=== PATIENT | male | born 1965 | race Caucasian/White ===

== ENCOUNTER 2017-04-17 10:36 | Inpatient (IN) | payer OTHER ==
[2017-04-17] VITALS (7 sets, daily range): BP systolic 133–158; BP diastolic 70–89; PULSE 77–85; RESP 17–21; TEMP 97.8–98.5; O2SAT 2–100
[2017-04-17] MEDS ORDERED: HYDROmorphone HCL PF 2 MG/ML VIAL ONE (10:47)
[2017-04-17] MEDS ORDERED: ONDANSETRON HCL 4 MG/2 ML VIAL ONE (10:47)
[2017-04-17 11:03] LABS: AUTOMATED NEUTROPHIL # 6.3 TH/MM3 (1.8-7.7); BASOPHIL # 0.1 TH/MM3 (0-0.2); BASOPHIL % 0.5 % (0.0-2.0); EOSINOPHIL % 8.7 % (0.0-4.0); HEMATOCRIT 45.5 % (39.0-51.0); HEMO FLAGS DIFF FINAL; I-STAT POTASSIUM 3.8 MMOL/L (3.5-4.9); LYMPH % 29.5 % (9.0-44.0); LYMPHOCYTE # 3.5 TH/MM3 (1.0-4.8); MEAN CELL VOLUME 94.3 FL (80.0-100.0); MEAN CORPUSCULAR HEMOGLOBIN 31.6 PG (27.0-34.0); MEAN CORPUSCULAR HGB CONC 33.5 % (32.0-36.0); MONO % 7.3 % (0.0-8.0); PLATELET COUNT 238 TH/MM3 (150-450); RED BLOOD COUNT 4.82 MIL/MM3 (4.50-5.90); RED CELL DISTRIBUTION WIDTH 12.9 % (11.6-17.2); WHITE BLOOD COUNT 11.7 TH/MM3 (4.0-11.0)
--- NOTE | 2017-04-17 11:03 | RADRPT ---
EXAM DATE/TIME: 04/17/2017 10:30 [facility] COMPARISON: No previous studies available for comparison. INDICATIONS : Trauma Alert, Fall left wrist pain. MEDICAL HISTORY : Hypercholesterolemia. SURGICAL HISTORY : None. ENCOUNTER: Initial ACUITY: 1 day PAIN SCORE: Non-responsive. LOCATION: Left Wrist FINDINGS: Dorsally displaced comminuted fracture of the distal radius. The ulna is suboptimally visualized due to lack of true AP view although it appears grossly intact. Carpal bones appear grossly intact and in normal alignment on lateral view. Associated soft tissue swelling about the wrist. CONCLUSION: 1. Dorsally displaced comminuted distal radial fracture. Hugo Clay MD on April 17, 2017 at 10:57 Board Certified Radiologist. This report was verified electronically.
--- NOTE | 2017-04-17 11:06 | RADRPT ---
EXAM DATE/TIME: 04/17/2017 10:30 [facility] COMPARISON: No previous studies available for comparison. INDICATIONS : Trauma Alert, Fall left ankle pain. MEDICAL HISTORY : None. SURGICAL HISTORY : None. ENCOUNTER: Initial ACUITY: 1 day PAIN SCORE: Non-responsive. LOCATION: Left Ankle FINDINGS: Impaction-type comminuted fractures of the distal tibia and fibula. There is anterior angulation of t he tibial fracture without significant displacement. There is a posterior displacement of the distal fibular fragment. Talar dome appears intact. Joint spaces appear grossly maintained. Soft tissue swel ling about the ankle. CONCLUSION: 1. Impacted comminuted fractures of the distal tibia and fibula, as above. Hugo Clay MD on April 17, 2017 at 11:02 Board Certified Radiologist. This report was verified electronically.
--- NOTE | 2017-04-17 11:07 | RADRPT ---
EXAM DATE/TIME: 04/17/2017 10:30 [facility] COMPARISON: No previous studies available for comparison. INDICATIONS : Trauma Alert, fall. MEDICAL HISTORY : Hypercholesterolemia. SURGICAL HISTORY : None. ENCOUNTER: Initial ACUITY: 1 day PAIN SCORE: Non-responsive. LOCATION: Bilateral chest FINDINGS: Lungs are clear without significant pneumothorax, effusion, or left apical cap. Cardiomediastinal con tours are within normal limits given portable technique. Bony thorax is grossly intact. CONCLUSION: 1. Negative portable chest status post trauma. Hugo Clay MD on April 17, 2017 at 11:05 Board Certified Radiologist. This report was verified electronically.
[2017-04-17] MEDS ORDERED: IOHEXOL 350 MG/ML 10 ML VIAL (for RAD DIAG) IVCONTRAST ONE (11:08)
--- NOTE | 2017-04-17 11:08 | RADRPT ---
EXAM DATE/TIME: 04/17/2017 10:58 [facility] COMPARISON: No previous studies available for comparison. INDICATIONS : Trauma alert, fall. RADIATION DOSE: 53.27 CTDIvol (mGy) MEDICAL HISTORY : None SURGICAL HISTORY : None. ENCOUNTER: Initial ACUITY: 1 day PAIN SCALE: 2/10 LOCATION: cranial TECHNIQUE: Multiple contiguous axial images were obtained of the head. Using automated exposure control and adj ustment of the mA and/or kV according to patient size, radiation dose was kept as low as reasonably a chievable to obtain optimal diagnostic quality images. DICOM format image data is available electro nically for review and comparison. FINDINGS: CEREBRUM: The ventricles are normal for age. No evidence of midline shift, mass lesion, hemorrhage or acute in farction. No extra-axial fluid collections are seen. POSTERIOR FOSSA: The cerebellum and brainstem are intact. The 4th ventricle is midline. The cerebellopontine angle i s unremarkable. EXTRACRANIAL: The visualized portion of the orbits is intact. SKULL: The calvaria is intact. No evidence of skull fracture. CONCLUSION: Normal examination. Morales Chapman MD on April 17, 2017 at 11:06 Board Certified Radiologist. This report was verified electronically.
--- NOTE | 2017-04-17 11:11 | PD ---
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 Patient denies any loss of consciousness. He also complains of back pains. He is brought in as a trauma alert by EMS. He is awake and able to give us history. Modifying Factors: None Associated Signs & Symptoms: Fall from 10 foot ladder, left ankle and left wrist deformity, back pain, trauma alert Risk Factors: None PFSH Past Medical History Medical History: Denies Significant Hx Review of Systems Except as stated in HPI: all other systems reviewed are Neg Physical Exam Narrative GENERAL: Well-developed middle age male patient currently in moderate distress. Awake and oriented 3. In backboard and c-collar. SKIN: Focused skin assessment warm/dry. HEAD: Atraumatic. Normocephalic. EYES: Pupils equal and round. No scleral icterus. No injection or drainage. ENT: No nasal bleeding or discharge. Mucous membranes pink and moist. NECK: Trachea midline. No JVD. C-collar in place. CARDIOVASCULAR: Regular rate and rhythm. No murmur appreciated. CHEST: Nontender throughout without deformity or crepitance. No retractions or use of accessory muscles. RESPIRATORY: No accessory muscle use. Clear to auscultation. Breath sounds equal bilaterally. GASTROINTESTINAL: Abdomen soft, non-tender, nondistended. Hepatic and splenic margins not palpable. Pelvis: Stable and nontender to palpation. MUSCULOSKELETAL: No obvious deformities. No clubbing. No cyanosis. No edema. EXTREMITIES: No clubbing, cyanosis, or edema. There is notable left wrist deformity with pulses intact and neurovascularly intact. Tender to palpation. There is also a notable distal tib-fib deformity with tenderness. Neurovascularly intact. NEUROLOGICAL: Awake and alert. No obvious cranial nerve deficits. Motor grossly within normal limits. Normal speech. PSYCHIATRIC: Appropriate mood and affect; insight and judgment normal. Data Data Last Documented VS Vital Signs Date Time Temp Pulse Resp B/P (MAP) Pulse Ox O2 Delivery O2 Flow Rate FiO2 04/17/17 10:30 97 3.00 Orders Orders I-Stat Profile (04/17/17 10:37) I-Stat Creatinine (04/17/17 10:37) Complete Blood Count With Diff (04/17/17 10:37) Prothrombin Time / Inr (Pt) (04/17/17 10:37) Act Partial Throm Time (Ptt) (04/17/17 10:37) Type And Screen (04/17/17 10:37) Chest, Single Ap (04/17/17 10:37) Pelvis, Ap Only (Routine) (04/17/17 10:37) Ct Brain W/O Iv Contrast(Rout) (04/17/17 10:37) Ct Cerv Spine W/O Contrast (04/17/17 10:37) Ct Thor Spine W/O Contrast (04/17/17 10:37) Ct Lumb Spine W/O Contrast (04/17/17 10:37) Iv Access Insert/Monitor (04/17/17 10:37) Ecg Monitoring (04/17/17 10:37) Oximetry (04/17/17 10:37) Oxygen Administration (04/17/17 10:37) Wrist, Limited (Ap&Lat) (04/17/17 ) Ankle, Limited (Ap&Lat) (04/17/17 ) Hydromorphone Pf Inj (Dilaudid Pf Inj) (04/17/17 10:47) Ondansetron Inj (Zofran Inj) (04/17/17 10:47) Admit Order (Ed Use Only) (04/17/17 10:50) Ct Abd/Pel W Iv Contrast(Rout) (04/17/17 ) Ct Thorax/ Chest W Iv Contrast (04/17/17 ) Labs Laboratory Tests Test 04/17/17 10:40 White Blood Count 11.7 TH/MM3 Red Blood Count 4.82 MIL/MM3 Hemoglobin 15.2 GM/DL Hematocrit 45.5 % Mean Corpuscular Volume 94.3 FL Mean Corpuscular Hemoglobin 31.6 PG Mean Corpuscular Hemoglobin Concent 33.5 % Red Cell Distribution Width 12.9 % Platelet Count 238 TH/MM3 Mean Platelet Volume 7.3 FL Neutrophils (%) (Auto) 54.0 % Lymphocytes (%) (Auto) 29.5 % Monocytes (%) (Auto) 7.3 % Eosinophils (%) (Auto) 8.7 % Basophils (%) (Auto) 0.5 % Neutrophils # (Auto) 6.3 TH/MM3 Lymphocytes # (Auto) 3.5 TH/MM3 Monocytes # (Auto) 0.9 TH/MM3 Eosinophils # (Auto) 1.0 TH/MM3 Basophils # (Auto) 0.1 TH/MM3 CBC Comment DIFF FINAL Differential Comment MDM Medical Screen Exam Complete: Yes Emergency Medical Condition: Yes Medical Record Reviewed: Yes EKG Prior to Arrival: Yes Interpretation(s) Laboratory Tests Test 04/17/17 10:40 White Blood Count 11.7 TH/MM3 (4.0-11.0) Eosinophils (%) (Auto) 8.7 % (0.0-4.0) Eosinophils # (Auto) 1.0 TH/MM3 (0-0.4) Bedside Glucose 125 MG/DL (60-95) Differential Diagnosis Fall from 10 foot, left wrist and left ankle injury: Dislocations versus fracture versus intracranial injuries versus lumbar spine injuries Narrative Course Case was discussed with who sees the patient in the trauma room and accepts him for admission to his service. X-rays in the trauma room shows a left tib-fib and left distal radial ulnar fracture. CAT scans have been ordered and the case was taken over by trauma at this point. Trauma Alert - Level One Trauma Alert Level One: Full trauma team activate, Patient evaluated, Trauma surgeon summoned Time Surgeon Summoned: 10:20 Time Anesthesiologist Summoned: 10:22 Diagnosis Diagnosis: Primary Impression: Fall from ladder Additional Impressions: Wrist fracture, closed Fracture of distal end of tibia with fibula Admitting Physician Requests: Admit Alpa Dhillon MD Apr 17, 2017 11:11
[2017-04-17 11:12] LABS: APTT (PATIENT) 25.9 SEC (24.3-30.1); INTERNATIONAL NORMALIZED RATIO 0.9 RATIO; PROTHROMBIN TIME - PATIENT 10.4 SEC (9.8-11.6)
--- NOTE | 2017-04-17 11:12 | RADRPT ---
EXAM DATE/TIME: 04/17/2017 10:30 [facility] COMPARISON: No previous studies available for comparison. INDICATIONS : Trauma Alert, Fall. MEDICAL HISTORY : None. SURGICAL HISTORY : None. ENCOUNTER: Initial ACUITY: 1 day PAIN SCORE: Non-responsive. LOCATION: Bilateral chest FINDINGS: A single frontal view of the pelvis demonstrates no evidence of fracture. The bony pelvic ring is in tact. Bony mineralization is normal. The soft tissues are intact. CONCLUSION: 1. No acute fracture or dislocation. Hugo Clay MD on April 17, 2017 at 11:06 Board Certified Radiologist. This report was verified electronically.
[2017-04-17] MEDS ORDERED: PROMETHAZINE INJ 25 MG/ML VIAL IM ONE (11:15)
--- NOTE | 2017-04-17 11:27 | RADRPT ---
EXAM DATE/TIME: 04/17/2017 10:58 [facility] COMPARISON: No previous studies available for comparison. INDICATIONS : Trauma alert, fall IV CONTRAST: 70 cc Omnipaque 350 (iohexol) IV ; Cumulative dose for multiple exams. ORAL CONTRAST: No oral contrast ingested. RADIATION DOSE: 19.96 CTDIvol (mGy) ; Combined studies - Thorax/Abdomen/Pelvis MEDICAL HISTORY : None SURGICAL HISTORY : None. ENCOUNTER: Initial ACUITY: 1 day PAIN SCALE: 0/10 LOCATION: abdomen TECHNIQUE: Volumetric scanning of the abdomen and pelvis was performed. Using automated exposure control and ad justment of the mA and/or kV according to patient size, radiation dose was kept as low as reasonably achievable to obtain optimal diagnostic quality images. DICOM format image data is available electro nically for review and comparison. FINDINGS: LOWER LUNGS: The visualized lower lungs are clear. LIVER: The liver is enlarged. Homogeneous density without lesion. There is no dilation of the biliary tree. No calcified gallstones. SPLEEN: Normal size without lesion. PANCREAS: Within normal limits. KIDNEYS: Normal in size and shape. There is no mass, stone or hydronephrosis. ADRENAL GLANDS: Within normal limits. VASCULAR: There is no aortic aneurysm. BOWEL/MESENTERY: The stomach, small bowel, and colon demonstrate no acute abnormality. There is no free intraperitone al air or fluid. The appendix is normal. ABDOMINAL WALL: Within normal limits. RETROPERITONEUM: There is no lymphadenopathy. BLADDER: No wall thickening or mass. REPRODUCTIVE: Central calcification is noted within the prostate. INGUINAL: Small left inguinal hernia containing only fat is noted. No lymphadenopathy is noted. MUSCULOSKELETAL: Within normal limits for patient age. CONCLUSION: 1. No evidence of intra-abdominal trauma. 2. Hepatomegaly. 3. Left inguinal hernia containing only fat. Chip Rhoaeds MD on April 17, 2017 at 11:22 Board Certified Radiologist. This report was verified electronically.
--- NOTE | 2017-04-17 11:29 | RADRPT ---
EXAM DATE/TIME: 04/17/2017 10:58 [facility] COMPARISON: No previous studies available for comparison. INDICATIONS : Trauma alert, fall IV CONTRAST: 70 cc Omnipaque 350 (iohexol) IV ; Cumulative dose for multiple exams. RADIATION DOSE: 19.96 CTDIvol (mGy) ; Combined studies - Thorax/Abdomen/Pelvis MEDICAL HISTORY : None SURGICAL HISTORY : None. ENCOUNTER: Initial ACUITY: 1 day PAIN SCALE: 4/10 LOCATION: chest TECHNIQUE: Volumetric scanning of the chest was performed. Using automated exposure control and adjustment of t he mA and/or kV according to patient size, radiation dose was kept as low as reasonably achievable to obtain optimal diagnostic quality images. DICOM format image data is available electronically for review and comparison. Follow-up recommendations for detected pulmonary nodules are based at a minimum on nodule size and pa tient risk factors according to Fleischner Society Guidelines. FINDINGS: LUNGS: There is no consolidation or pneumothorax. No concerning pulmonary nodule is visualized. Minimal pos terior atelectatic changes are noted bilaterally. Tiny bulla is noted within the right lower lobe. PLEURA: There is no pleural thickening or pleural effusion. MEDIASTINUM: The heart and great vessels demonstrate no acute abnormality. There is no mediastinal or hilar lymph adenopathy. AXILLAE: Within normal limits. No lymphadenopathy. SKELETAL: Within normal limits for patient age. MISCELLANEOUS: The visualized upper abdominal organs demonstrate no acute abnormality. CONCLUSION: 1. No evidence of intrathoracic trauma. 2. Minimal posterior atelectatic changes bilaterally. 3. Tiny bulla within the right lower lobe. Chip Rhoades MD on April 17, 2017 at 11:26 Board Certified Radiologist. This report was verified electronically.
--- NOTE | 2017-04-17 11:35 | MH ---
cc: JENNY MAYS MD DATE OF ADMISSION 04/17/[address] Mays, trauma surgery ADMISSION DIAGNOSIS Closed fracture of distal tibia and fibula left and closed fracture of the left ray radius and ulna. HISTORY OF PRESENT DISEASE This 51-year-old male was working on a ladder when he fell off 10 feet sideways and landed on his left side. He comes as a priority one trauma alert complaining about the pain in the left ankle and left wrist and apparently a trauma alert was called due to the height of the fall. The patient did not lose consciousness and does not complain about any other problems. PAST MEDICAL HISTORY Apparently is negative. PAST SURGICAL HISTORY Negative MEDICATIONS None ALLERGIES No allergies. SOCIAL HISTORY Noncontributory PHYSICAL EXAM Physical examination reveals a 51-year-old male in moderate distress. HEAD, EYES, EARS, NOSE, AND THROAT: Normocephalic. No trauma to the head. Pupils equally reactive. Extraocular muscles intact. No hemotympanum. No Swartz sign. No raccoon's eyes. NECK: Supple, bilateral carotid pulses. No bruits. C-collar is repositioned. CHEST: Bilateral breath sounds. HEART: Regular rhythm. Hemodynamically the patient is stable. No signs of trauma to the chest. ABDOMEN: Soft. Active bowel sounds. No rebound or guarding. No masses. No signs of trauma to the abdomen. EXTREMITIES: The patient has bilateral femoral, popliteal, dorsalis pedis and posterior tibial pulses on palpation. Bilateral brachial and radial ulnar pulses by palpation. The patient has deformity and swelling of the left ankle and left wrist consistent with fracture of both. No puncture or open wound is noted. NEUROLOGIC EXAMINATION: The Alton coma scale is 15, full motoric and sensory preserved. The patient is log-rolled to back, no abnormalities are found. IMPRESSION This is a 51-year-old male with the above-noted injuries to be admitted to the Trauma Service for further workup and therapy. Critical care time 35 minutes. Jenny MENESES/DJL /11:17 AM /11:27 AM
--- NOTE | 2017-04-17 11:39 | RADRPT ---
EXAM DATE/TIME: 04/17/2017 10:58 [facility] COMPARISON: No previous studies available for comparison. INDICATIONS : Trauma alert, fall RADIATION DOSE: 21.63 CTDIvol (mGy) MEDICAL HISTORY : None SURGICAL HISTORY : None. ENCOUNTER: Initial ACUITY: 1 day PAIN SCALE: 0/10 LOCATION: Neck TECHNIQUE: Volumetric scanning of the cervical spine was performed. Multiplanar reconstructions in the sagittal, coronal and oblique axial planes were performed. Using automated exposure control and adjustment o f the mA and/or kV according to patient size, radiation dose was kept as low as reasonably achievable to obtain optimal diagnostic quality images. DICOM format image data is available electronically f or review and comparison. FINDINGS: There is straightening of the normal cervical lordosis. There is no acute fracture or prevertebral s oft tissue swelling. Cervical spondylosis is noted at C4-5 and C3-4 with mild bilateral foraminal na rrowing at these levels. Mild diffuse disc osteophyte complex is noted at C4-5. The bony relationsh ip and alignment between C1 and C2 is well maintained. CONCLUSION: 1. No acute fracture or prevertebral soft tissue swelling. 2. Mild bilateral foraminal narrowing at C4-5 and C3-4. 3. Mild cervical spondylosis at C4-5 and C3-4. Straightening of the normal cervical lordosis. Chip Rhoades MD on April 17, 2017 at 11:19 Board Certified Radiologist. This report was verified electronically.
[2017-04-17] MEDS ORDERED: Post-op Orders (for Pharmacy) MISC XX ONE (11:45)
[2017-04-17] MEDS ORDERED: NALOXONE HCL 0.4 MG/ML AMP IV PUSH PRN (11:45)
[2017-04-17] MEDS: SODIUM CHLOR 0.9% 1000 ML INJ 1,000 ML IV SCH ×2 (13:16→20:53)
[2017-04-17] MEDS: PANTOPRAZOLE SOD 40 MG DELAYED RELEASE TAB PO SCH (13:16)
[2017-04-17] MEDS: oxyCODONE/ACETAMINOPHEN 5 MG/325 MG TAB PO PRN (13:22)
[2017-04-17] MEDS: ONDANSETRON HCL 4 MG/2 ML VIAL IV PRN (17:00)
[2017-04-17] MEDS: HYDROmorphone HCL PF 1 MG/ML VIAL IV PUSH PRN ×2 (17:02→20:35)
[2017-04-17] MEDS ORDERED: ENOXAPARIN SODIUM 40 MG/0.4 ML SYRINGE SQ SCH (18:00)
[2017-04-17] MEDS: MAGNESIUM HYDROXIDE SUSP 30 ML CUP PO SCH (20:37)
[2017-04-17] MEDS: SODIUM CHLORIDE 0.9% FLUSH 10 ML FLUSH IV FLUSH SCH (20:37)
[2017-04-17] MEDS: DOCUSATE SODIUM 50 MG/SENNA 8.6 MG TAB PO SCH (20:37)
[2017-04-18 00:12] VITALS: BP 137/78; PULSE 78; RESP 18; TEMP 98.2; O2SAT 97
[2017-04-18] MEDS: HYDROmorphone HCL PF 1 MG/ML VIAL IV PUSH PRN ×3 (03:15→16:17)
[2017-04-18 04:40] VITALS: BP 145/88; PULSE 79; RESP 18; TEMP 98.9; O2SAT 99
[2017-04-18] MEDS: oxyCODONE/ACETAMINOPHEN 5 MG/325 MG TAB PO PRN (05:37)
--- NOTE | 2017-04-18 07:07 | PD.ORT.PN ---
Subjective Subjective Remarks Fall from ladder with pain and deformity of left wrist and left distal tibia. No other associated complaints. Fractures are confirmed by x-ray and are splinted Objective Vitals Vital Signs Date Time Temp Pulse Resp B/P (MAP) Pulse Ox O2 Delivery O2 Flow Rate FiO2 04/18/17 04:40 98.9 79 18 145/88 (107) 99 04/18/17 00:12 98.2 78 18 137/78 (97) 97 04/17/17 20:46 97.8 77 18 133/77 (95) 97 04/17/17 14:37 04/17/17 14:30 98.5 85 17 153/89 (110) 98 04/17/17 13:00 80 21 158/77 (104) 96 2.00 04/17/17 12:01 100 Nasal Cannula 2.00 04/17/17 11:37 83 21 148/70 (96) 96 Nasal Cannula 2.00 04/17/17 11:27 20 91 Room Air 04/17/17 11:27 93 04/17/17 10:30 97 3.00 I/O 04/17/17 04/17/17 04/17/17 04/18/17 04/18/17 04/18/17 07:00 15:00 23:00 07:00 15:00 23:00 Intake Total 530 ml 285 ml Output Total 250 ml 600 ml Balance 280 ml -315 ml Intake Oral 480 ml 0 ml IV Total 50 ml 285 ml Output Urine Total 250 ml 600 ml # Bowel Movements 0 0 Result Diagram: 04/17/17 1040 Other Results Laboratory Tests Test 04/17/17 10:40 Prothromb Time International Ratio 0.9 RATIO Prothrombin Time 10.4 SEC (9.8-11.6) Imaging Last 24 hours Impressions Pelvis X-Ray 04/17/17 1037 Signed Impressions: Service Date/Time: April 10:30 - CONCLUSION: 1. No acute fracture or dislocation. Hugo Clay MD Head CT 04/17/17 1037 Signed Impressions: Service Date/Time: April 10:58 - CONCLUSION: Normal examination. Morales Chapman MD Chest X-Ray 04/17/17 1037 Signed Impressions: Service Date/Time: April 10:30 - CONCLUSION: 1. Negative portable chest status post trauma. Hugo Clay MD Cervical Spine CT 04/17/17 1037 Signed Impressions: Service Date/Time: April 10:58 - CONCLUSION: 1. No acute fracture or prevertebral soft tissue swelling. 2. Mild bilateral foraminal narrowing at C4-5 and C3-4. 3. Mild cervical spondylosis at C4-5 and C3-4. Straightening of the normal cervical lordosis. Chip Rhoades MD Objective Remarks Left upper extremity: No pain with shoulder range of motion. Sugar tong splint in place. Intact sensation in all his fingers is able fully extend and flex all his fingers. He has good capillary refills Left lower extremity: No pain with hip range of motion. Long-leg splint in place. Intact sensation distally in all toes. Good capillary refills. Assessment & Plan Assessment and Plan Left distal radius and left distal tibia/fibula fracture Surgery this morning for ORIF versus external fixation of left wrist and left distal tibia and fibula. Sign consents Nothing by mouth Luis Jacobson Jr. Apr 18, 2017 07:07
[2017-04-18 07:58] LABS: AUTOMATED NEUTROPHIL # 6.8 TH/MM3 (1.8-7.7); BASOPHIL % 0.3 % (0.0-2.0); EOSINOPHIL # 0.3 TH/MM3 (0-0.4); EOSINOPHIL % 2.9 % (0.0-4.0); HEMATOCRIT 43.7 % (39.0-51.0); HEMO FLAGS DIFF FINAL; LYMPH % 15.1 % (9.0-44.0); LYMPHOCYTE # 1.4 TH/MM3 (1.0-4.8); MEAN CELL VOLUME 94.1 FL (80.0-100.0); MEAN CORPUSCULAR HEMOGLOBIN 32.1 PG (27.0-34.0); MEAN CORPUSCULAR HGB CONC 34.1 % (32.0-36.0); MONO % 8.3 % (0.0-8.0); NEUT % 73.4 % (16.0-70.0); PLATELET COUNT 184 TH/MM3 (150-450); RED BLOOD COUNT 4.65 MIL/MM3 (4.50-5.90); RED CELL DISTRIBUTION WIDTH 12.7 % (11.6-17.2); WHITE BLOOD COUNT 9.3 TH/MM3 (4.0-11.0)
[2017-04-18 08:00] VITALS: BP 133/80; PULSE 82; RESP 18; TEMP 99; O2SAT 93
[2017-04-18 08:17] LABS: BICARBONATE 26.3 MEQ/L (21.0-32.0); POTASSIUM 3.9 MEQ/L (3.5-5.1)
[2017-04-18] MEDS: DOCUSATE SODIUM 50 MG/SENNA 8.6 MG TAB PO SCH ×2 (09:00→21:57)
--- NOTE | 2017-04-18 09:08 | HHI.PR ---
Subjective Subjective Notes PTD: 1 9020: IN OR 1010: In OR 1110: In OR Objective Vitals/I&O Vital Signs Date Time Temp Pulse Resp B/P (MAP) Pulse Ox O2 Delivery O2 Flow Rate FiO2 04/18/17 04:40 98.9 79 18 145/88 (107) 99 04/17/17 13:00 2.00 04/17/17 12:01 Nasal Cannula Labs Laboratory Tests Test 04/17/17 10:40 04/18/17 07:16 White Blood Count 11.7 9.3 Red Blood Count 4.82 4.65 Hemoglobin 15.2 14.9 Bedside Hemoglobin 15.3 Hematocrit 45.5 43.7 Bedside Hematocrit 45.0 Mean Corpuscular Volume 94.3 94.1 Mean Corpuscular Hemoglobin 31.6 32.1 Mean Corpuscular Hemoglobin Concent 33.5 34.1 Red Cell Distribution Width 12.9 12.7 Platelet Count 238 184 Mean Platelet Volume 7.3 7.5 Neutrophils (%) (Auto) 54.0 73.4 Lymphocytes (%) (Auto) 29.5 15.1 Monocytes (%) (Auto) 7.3 8.3 Eosinophils (%) (Auto) 8.7 2.9 Basophils (%) (Auto) 0.5 0.3 Neutrophils # (Auto) 6.3 6.8 Lymphocytes # (Auto) 3.5 1.4 Monocytes # (Auto) 0.9 0.8 Eosinophils # (Auto) 1.0 0.3 Basophils # (Auto) 0.1 0.0 CBC Comment DIFF FINAL DIFF FINAL Differential Comment Prothrombin Time 10.4 Prothromb Time International Ratio 0.9 Activated Partial Thromboplast Time 25.9 Bedside Sodium 141 Bedside Potassium 3.8 Bedside Chloride 104 Bedside Blood Urea Nitrogen 19 Bedside Creatinine 0.8 Bedside Glucose 125 Blood Urea Nitrogen 13 Creatinine 0.82 Random Glucose 105 Calcium Level 8.4 Sodium Level 134 Potassium Level 3.9 Chloride Level 100 Carbon Dioxide Level 26.3 Anion Gap 8 Estimat Glomerular Filtration Rate 99 Radiology Last Impressions Pelvis X-Ray 04/17/17 1037 Signed Impressions: Service Date/Time: April 10:30 - CONCLUSION: 1. No acute fracture or dislocation. Hugo Clay MD Head CT 04/17/17 1037 Signed Impressions: Service Date/Time: April 10:58 - CONCLUSION: Normal examination. Morales Chapman MD Chest X-Ray 04/17/17 1037 Signed Impressions: Service Date/Time: April 10:30 - CONCLUSION: 1. Negative portable chest status post trauma. Hugo Clay MD Cervical Spine CT 04/17/17 1037 Signed Impressions: Service Date/Time: April 10:58 - CONCLUSION: 1. No acute fracture or prevertebral soft tissue swelling. 2. Mild bilateral foraminal narrowing at C4-5 and C3-4. 3. Mild cervical spondylosis at C4-5 and C3-4. Straightening of the normal cervical lordosis. Chip Rhoades MD Wrist X-Ray 04/17/17 0000 Signed Impressions: Service Date/Time: April 10:30 - CONCLUSION: 1. Dorsally displaced comminuted distal radial fracture. Hugo Clay MD Chest CT 04/17/17 0000 Signed Impressions: Service Date/Time: April 10:58 - CONCLUSION: 1. No evidence of intrathoracic trauma. 2. Minimal posterior atelectatic changes bilaterally. 3. Tiny bulla within the right lower lobe. Chip Rhoades MD Ankle X-Ray 04/17/17 0000 Signed Impressions: Service Date/Time: April 10:30 - CONCLUSION: 1. Impacted comminuted fractures of the distal tibia and fibula, as above. Hugo Clay MD Abdomen/Pelvis CT 04/17/17 0000 Signed Impressions: Service Date/Time: April 10:58 - CONCLUSION: 1. No evidence of intra-abdominal trauma. 2. Hepatomegaly. 3. Left inguinal hernia containing only fat. Chip Rhoades MD A/P Problem List: (1) Fall from ladder ICD Codes: W11.XXXA - Fall on and from ladder, initial encounter Status: Acute (2) Wrist fracture, closed ICD Codes: S62.109A - Fracture of unspecified carpal bone, unspecified wrist, initial encounter for closed fracture Status: Acute (3) Fracture of distal end of tibia with fibula ICD Codes: S82.309A - Unspecified fracture of lower end of unspecified tibia, initial encounter for closed fracture; S82.839A - Other fracture of upper and lower end of unspecified fibula, initial encounter for closed fracture Status: Acute Assessment and Plan MESA GRANDE: 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 No LOC. GCS 15. INJURIES: C3-C4 and C4-C5 bilateral foraminal narrowing LEFT distal radius/ulna fracture LEFT tib-fib fracture Procedures: 04/18: ORIF vs ex-fix LEFT wrist and LEFT tib/fib. Consults: Orthopedics. Case management. Diet: Regular diet. Tolerating po diet. Encourage good po intake with each meal. Pulmonary: Encourage good pulmonary toileting. IS at bedside and pt encouraged to use. Rationale for use explained to patient, and verbalized understanding. PAIN Management: Percocet 5 mg every 4 hours. Dilaudid 1 mg every 3 hours for breakthrough pain Activity: BR. PT and OT ordered. GI prophylaxis: Protonix po. Bowel regimen: Brianna-colace and MOM. LBM: 0 DVT prophylaxis: Mechanical VTE with SCDs. Chemical management with Lovenox 40 QD SQ. DC Planning: Case management consulted for assistance with final discharge disposition. Emotional support provided to patient and family at bedside and plan of care discussed. Discussed with RN at bedside. Patient is hemodynamically stable and being managed on the med/surg floor. The trauma team will round each day, and evaluate plan of care on a daily basis. C3-C4 and C4-C5 bilateral foraminal narrowing LEFT distal radius/ulna fracture LEFT tib-fib fracture Orthopedics consulted and assisting in management and care 04/18: ORIF versus ex-fix Bedrest PT and OT ordered Tolerating weightbearing status from orthopedics Pain management DVT prophylaxis Attending Statement The exam, history, and the medical decision-making described in the above note were completed with the assistance of the mid-level provider. I reviewed and agree with the findings presented. I attest that I had a [id number] encounter with the patient on the same day, and personally performed and documented my assessment and findings in the medical record. discussed with family injuries/rehab plan neuro exam: awake/alert, GCS 15 Problem Qualifiers (1) Fall from ladder: Qualified Codes: W11.XXXA - Fall on and from ladder, initial encounter (2) Wrist fracture, closed: Qualified Codes: S62.102A - Fracture of unspecified carpal bone, left wrist, initial encounter for closed fracture (3) Fracture of distal end of tibia with fibula: Qualified Codes: S82.302A - Unspecified fracture of lower end of left tibia, initial encounter for closed fracture; S82.832A - Other fracture of upper and lower end of left fibula, initial encounter for closed fracture Samantha Bustillos Apr 18, 2017 09:08 Berto Moore MD May 06, 2017 23:47
[2017-04-18] MEDS ORDERED: ONDANSETRON HCL 4 MG/2 ML VIAL IV PUSH ONE (09:22)
[2017-04-18] MEDS ORDERED: NEOSTIGMINE METHYLSULFATE 10 MG/10 ML VIAL IV PUSH ONE (09:22)
[2017-04-18] MEDS ORDERED: GLYCOPYRROLATE 0.4 MG/2 ML VIAL IV ONE (09:22)
[2017-04-18] MEDS ORDERED: ePHEDrine/NS 25 MG/5 ML SYR IV ONE (09:22)
[2017-04-18] MEDS ORDERED: PROPOFOL 200 MG/20 ML AMP IV ONE (09:22)
[2017-04-18] MEDS ORDERED: ACETAMINOPHEN 1000 MG/100 ML VIAL IV ONE (09:25)
[2017-04-18] MEDS ORDERED: ROCURONIUM INJ 50 MG/5 ML SYRINGE IV PUSH ONE (09:25)
[2017-04-18] MEDS ORDERED: FAMOTIDINE 20 MG/2 ML VIAL IV ONE (09:25)
[2017-04-18] MEDS ORDERED: LACTATED RINGER'S 1000 ML INJ 1,000 ML IV ONE (09:25)
[2017-04-18] MEDS ORDERED: LIDOCAINE HCL 1% PF 5 ML AMPULE OTHER ONE (09:25)
[2017-04-18] MEDS ORDERED: GLYCOPYRROLATE 0.2 MG/ML VIAL IV ONE (09:25)
[2017-04-18] MEDS ORDERED: DEXAMETHASONE SOD PHOS 4 MG/ML VIAL IV ONE (09:25)
[2017-04-18] MEDS ORDERED: ceFAZolin 2 GM PREMIX 50 ML ONE (10:07)
[2017-04-18] MEDS ORDERED: VANCOMYCIN HCL 1000 MG VIAL ONE (10:07)
[2017-04-18] MEDS ORDERED: GENTAMICIN SULFATE 80 MG/2 ML VIAL ONE (10:07)
[2017-04-18] MEDS ORDERED: SODIUM CHLOR 0.9% 250 ML INJ 250 ML ONE (10:08)
--- NOTE | 2017-04-18 12:28 | PD.OP ---
cc: Boyd Brandon MD Operative Report Date of Surgery: Apr 18, 2017 Preoperative Diagnosis: Comminuted displaced left distal radius intra-articular fracture, displaced left distal tibia and fibula fractures Postoperative Diagnosis: Procedure: External fixation left wrist, Open reduction and fixation left distal radius closed reduction left distal tibia and fibula fractures, external fixation left ankle Surgeon: Boyd Brandon Human Services Case Manager(s): KHALIF aWllace PA-C The surgical procedure was assisted by my physician administrative personal assistant. My P.A. presence was necessary throughout this case for the manipulation and positioning of the surgical extremity. My P.A. was assisting me throughout the duration of this procedure. The skill set of a physician administrative personal assistant was medically necessary to complete this procedure. During the surgical case the rn surgical pcu was working at the back table and the physician administrative personal assistant was directly assisting me. Operation and Findings: Patient was seen and evaluated preoperatively and found to have a displaced left distal radius fracture and left distal tibia and fibula fractures. Informed consent was obtained after detailed discussion of risk and benefits including bleeding, infection, injury to arteries, nerves, and blood vessels, weakness and numbness of hand, and tendon rupture. Informed consent was obtained. Patient received IV antibiotics prior to incision. Timeout procedure was performed. Operative extremity was prepped with alcohol followed by Hibiclens and draped usual sterile fashion. A standard volar approach to the distal radius was utilized. A 3 inch incision was made over the FCR tendon. Tendon sheath was opened. Pronator quadratus was elevated up. The fracture site was now visualized. The fracture did have intra-articular extension. There was severe comminution of the articular surface with significant displacement. Because of the comminution of the fracture, decision was made to proceed with external fixation at this time. 2 small incisions were made over the radial shaft and the second metacarpal shaft. Soft tissue was protected. Pin sites were predrilled. Synthes ARENAS- coated pins were placed into the radius and second metacarpal. An external fixator construct was now placed. Traction was applied. Gross alignment of the wrist was achieved. External fixation was tightened to hold the reduction. Attention was now turned back to open reduction internal fixation of the distal radius. The articular surface was reduced. Fracture fragments were manipulated to achieve excellent reduction. K wires were used to hold provisional fixation. Fluoroscopy confirmed appropriate alignment of fracture. A Synthes 2 column variable angle distal radius plate was selected. Plate was provisionally fixed to bone with K wires. 2.7 and 2.4 cortical screws were used to compress plate to bone. Fluoroscopy confirmed appropriate alignment of fracture with well-placed hardware. Multiple 2.4 locking screws were now placed distally. Screws were predrilled and measured for appropriate length. 2 additional screws were placed into the shaft. K wires were removed. Final fluoroscopy revealed excellent of fracture with well-placed hardware. The wound was thoroughly irrigated with sterile saline. Subcutaneous tissue was closed with 3-0 Vicryl and skin was closed with 3-0 nylon. Sterile dressings were applied with Xeroform, 4 x 4, soft roll, and a well padded volar splint. Next attention was turned towards the left ankle. Patient had significant swelling of the left ankle. At this point, soft tissues did not appear ready for surgical open reduction internal fixation. Decision was made to proceed with external fixation. The procedure began with placement of external fixation. Two percutaneous incisions were made over the tibia. Pin sites were pre-drilled. Synthes ARENAS-coated pins were placed from anterior to posterior in the tibia shaft. An additional transfixion pin was placed through the calcaneus. Pins were also placed in the first and fifth metatarsals. An external fixator was now constructed. Fluoroscopy was used to confirm appropriate pin placement Next attention was turned to traction with manipulation of the leg and closed reduction of the fractures. The fracture was manipulated under fluoroscopy. Excellent reduction was achieved. With the fracture held in reduced position, the external fixator was tightened. Fluoroscopy confirmed a well-placed external fixation with well-aligned fractures. Sterile dressings were applied. The patient was awakened and transferred to Recovery in stable condition. The soft tissue was reevaluated. Patient did have swelling around the ankle and calf but compartments were soft and compressible with no signs of compartment syndrome. Boyd Brandon MD Apr 18, 2017 12:28
[2017-04-18] MEDS ORDERED: DO NOT ADM ANY ANTICOAGULANT DRUGS PRN (12:53)
[2017-04-18] MEDS ORDERED: *morphine SULFATE 8 MG/ML PERIprocedure ONLY ONE ×2 (13:00→13:20)
[2017-04-18] MEDS: KETOROLAC TROMETHAMINE 30 MG/ML (IVP) VIAL IVP SCH ×2 (13:55→21:57)
[2017-04-18] MEDS: LACTATED RINGER'S 1000 ML INJ 1,000 ML IV SCH ×2 (14:00→22:19)
[2017-04-18 14:20] VITALS: BP 149/89; PULSE 82; RESP 18; TEMP 97.2; O2SAT 95
[2017-04-18] MEDS: ceFAZolin 2 GM PREMIX 50 ML IV SCH ×2 (14:29→21:57)
[2017-04-18] MEDS: PANTOPRAZOLE SOD 40 MG DELAYED RELEASE TAB PO SCH (14:29)
--- NOTE | 2017-04-18 15:26 | RADRPT ---
EXAM DATE/TIME: 04/18/2017 11:56 [facility] COMPARISON: FLUOROSCOPY PORTABLE UP TO 1HR, April 18, 2017, 0:00. INDICATIONS : Left ankle ex-fix. MEDICAL HISTORY : Hypercholesterolemia. SURGICAL HISTORY : None. ENCOUNTER: Subsequent ACUITY: 1 day PAIN SCORE: Non-responsive. LOCATION: Left ankle FINDINGS: The exam demonstrates a mildly displaced, comminuted fractures of the distal left tibia and fibula. T he alignment post external fixator placement is good. CONCLUSION: 1. Good alignment of the tibial and fibular fractures post placement of an external fixator. Dakota Chavez MD on April 18, 2017 at 15:24 Board Certified Radiologist. This report was verified electronically.
--- NOTE | 2017-04-18 15:27 | RADRPT ---
EXAM DATE/TIME: 04/18/2017 11:56 [facility] COMPARISON: FLUOROSCOPY PORTABLE UP TO 1HR, April 18, 2017, 0:00. INDICATIONS : Left wrist open reduction internal fixation and ex-fix. MEDICAL HISTORY : Hypercholesterolemia. SURGICAL HISTORY : None. ENCOUNTER: Subsequent ACUITY: 1 day PAIN SCORE: Non-responsive. LOCATION: Left wrist FINDINGS: The exam demonstrates a plate across the patient's distal radial fracture. There is excellent alignme nt of the fracture post plating. CONCLUSION: 1. Good alignment of the patient's distal radial fracture post plating. Dakota Chavez MD on April 18, 2017 at 15:25 Board Certified Radiologist. This report was verified electronically.
--- NOTE | 2017-04-18 16:46 | MB ---
cc: HARITHA CHAUDHRY AKA: Allen Phillips DATE OF CONSULTATION 04/18/2017 REASON FOR CONSULTATION 1. Comminuted left distal radius fracture. 2. Left distal tibia and fibula fractures. CONSULTING PHYSICIAN Dr. Hoyos HISTORY This patient known as Allen Phillips is a male who was working on a ladder. He was approximately 10 feet high on the ladder. The ladder slid causing him to fall. He presented to the emergency room as trauma alert. He is found to have a comminuted intrarticular left distal radius fracture as well as a left distal tibia and fibula fracture. He is currently awake, alert on the orthopedic floor. Pain is worse with movement, is improved with rest. He denies dizziness, syncope or loss of consciousness. PAST MEDICAL HISTORY/ILLNESSES None. ALLERGIES None. MEDICATIONS None. SURGERIES None. SOCIAL HISTORY The patient denies tobacco or drug use. FAMILY HISTORY Noncontributory. REVIEW OF SYSTEMS The patient denies headache, visual changes, neck pain, chest pain, shortness of breath, abdominal pain, nausea, vomiting or recent weight loss or numbness in extremities. He complains of left ankle pain and left wrist pain. PHYSICAL EXAMINATION GENERAL: The patient is a pleasant 51-year-old male. He is awake and alert. Appears well-developed, well-nourished. He is in no acute distress. VITAL SIGNS: Temperature 99.0, pulse 82, respirations 18, blood pressure 133/80, O2 sat 93% on room air. HEAD: The patient is normocephalic. Pupils are equal. NECK: Soft, nontender. Trachea is midline. ABDOMEN: Soft, nontender, nondistended. EXTREMITIES: Examination of left arm reveals no tenderness around his shoulder or elbow. He is diffusely tender around the wrist. There is mild to moderate swelling and skin is intact. Sensation intact in all fingers. He has good cap refill in all fingers. Examination of right arm reveals no pain with shoulder, elbow, wrist motion. He has intact sensation in all fingers. He has good cap refill in all fingers. Skin is intact. Radial pulses palpable. Examination of right leg reveals no pain with hip, knee or ankle motion. Skin is intact. Dorsalis pedis pulses palpable. Sensation is intact. Examination of left leg reveals no pain around his hip or knee. He is diffusely tender around the ankle. There is mild to moderate swelling. Skin is intact. Dorsalis pedis pulses palpable. He has pain with any ankle motion. X-RAYS X-rays of left wrist were reviewed. X-rays reveal a severely comminuted intraarticular displaced left distal radius fracture. X-rays of left ankle were reviewed. X-rays reveal a displaced and angulated left distal tibia and fibula fractures. IMPRESSION 1. Comminuted displaced intraarticular left distal radius fracture. 2. Angulated left distal tibia and fibula fractures. PLAN Treatment options were discussed with the patient. At this point I would recommend open reduction, internal fixation of left wrist with possible external fixation. I explained to him that he may need two surgeries on the ankle. One for closed reduction and external fixation and delayed surgery for open reduction, internal fixation secondary to the amount of swelling that he has. The risks of surgery were discussed in-depth with the patient and all questions were answered. Risks of surgery include bleeding, infection, injury to arteries, nerves, blood vessels, pin tract infection, nonunion, malunion, painful hardware, wound complications as well as medical complications including blood clot, stroke, heart attack and . I will plan on surgery today. A mid-level provider in my office, nurse practitioner or PA, may see this patient on a follow-up basis and continue to implement the objective of this plan including: Starting or adjusting medications, injections of muscle, tendon, bursa or joints, cast application, orthotic or brace application, physical therapy, further radiographic studies including x-ray, MRI, CT, ultrasounds or bone scan, vascular studies, neurologic studies, or other specialist consultations, and proceeding with surgical management as appropriate. MD LEENA Machuca/LORA /12:29 PM /4:30 PM JUAN
[2017-04-18 20:00] VITALS: BP 133/86; PULSE 80; RESP 18; TEMP 96.8; O2SAT 95
[2017-04-18] MEDS ORDERED: WHEEMIS3 (21:32)
[2017-04-18] MEDS ORDERED: MAGN400S PO (21:32)
[2017-04-18] MEDS ORDERED: SENN1TAB PO (21:32)
[2017-04-18] MEDS ORDERED: BEDSIDE COMMODE1 MI1 (21:32)
[2017-04-18] MEDS: MAGNESIUM HYDROXIDE SUSP 30 ML CUP PO SCH (21:57)
[2017-04-18] MEDS: ACETAMINOPHEN/HYDROcodone 325 MG/10 MG TAB PO PRN (21:57)
[2017-04-18] MEDS: SODIUM CHLORIDE 0.9% FLUSH 10 ML FLUSH IV FLUSH SCH (22:01)
[2017-04-19] VITALS (7 sets, daily range): BP systolic 98–156; BP diastolic 63–96; PULSE 72–83; RESP 17–18; TEMP 97.4–98.8; O2SAT 94–98
[2017-04-19] MEDS: SODIUM CHLOR 0.9% 1000 ML INJ 1,000 ML IV SCH (03:30)
[2017-04-19] MEDS: KETOROLAC TROMETHAMINE 30 MG/ML (IVP) VIAL IVP SCH ×3 (05:45→22:31)
[2017-04-19] MEDS: ceFAZolin 2 GM PREMIX 50 ML IV SCH (05:45)
[2017-04-19] MEDS: LACTATED RINGER'S 1000 ML INJ 1,000 ML IV SCH (08:19)
--- NOTE | 2017-04-19 08:21 | PD.ORT.PN ---
Subjective Post Op Day #: 1 Subjective Remarks in room translating. pain better. Objective Vitals Vital Signs Date Time Temp Pulse Resp B/P (MAP) Pulse Ox O2 Delivery O2 Flow Rate FiO2 04/19/17 03:15 97.4 74 17 98/69 (79) 95 04/19/17 00:10 97.9 72 18 112/63 (79) 94 04/18/17 20:00 96.8 80 18 133/86 (102) 95 04/18/17 14:20 97.2 82 18 149/89 (109) 95 04/18/17 13:55 98.4 75 14 94 Nasal Cannula 2 04/18/17 13:45 72 14 157/88 (111) 93 Nasal Cannula 2 04/18/17 13:30 74 15 153/86 (108) 93 Nasal Cannula 2 04/18/17 13:15 75 13 144/85 (104) 93 Nasal Cannula 2 04/18/17 13:00 79 15 157/83 (107) 94 Nasal Cannula 2 04/18/17 12:53 97.9 84 12 167/83 (111) 93 Nasal Cannula 2 I/O 04/18/17 04/18/17 04/18/17 04/19/17 04/19/17 04/19/17 07:00 15:00 23:00 07:00 15:00 23:00 Intake Total 285 ml 1300 ml 1038 ml 488 ml Output Total 600 ml 75 ml 650 ml 350 ml Balance -315 ml 1225 ml 388 ml 138 ml Intake Oral 0 ml 720 ml 240 ml IV Total 285 ml 200 ml 318 ml 248 ml Other 1100 ml Output Urine Total 600 ml 650 ml 350 ml Estimated Blood Loss 75 ml # Bowel Movements 0 0 Result Diagram: 04/18/17 0716 04/18/17 0716 Imaging Last 24 hours Impressions Pelvis X-Ray 04/17/17 1037 Signed Impressions: Service Date/Time: April 10:30 - CONCLUSION: 1. No acute fracture or dislocation. Hugo Clay MD Head CT 04/17/17 1037 Signed Impressions: Service Date/Time: April 10:58 - CONCLUSION: Normal examination. Morales Chapman MD Chest X-Ray 04/17/17 1037 Signed Impressions: Service Date/Time: April 10:30 - CONCLUSION: 1. Negative portable chest status post trauma. Hugo Clay MD Cervical Spine CT 04/17/17 1037 Signed Impressions: Service Date/Time: April 10:58 - CONCLUSION: 1. No acute fracture or prevertebral soft tissue swelling. 2. Mild bilateral foraminal narrowing at C4-5 and C3-4. 3. Mild cervical spondylosis at C4-5 and C3-4. Straightening of the normal cervical lordosis. Chip Rhoades MD Objective Remarks Left upper extremity: ex-fix intact. dressing c/d/i. nvi. sensation intact. cap refill Left lower extremity: ex-fix intact. swelling. compartments soft. nvi. sensation intact. cap refill. Assessment & Plan Ortho Post Op Day #: 1 Problem List: Assessment and Plan Left distal radius and left distal tibia/fibula fracture - ex-fix POD#1 NWB LUE and LLE Ice dressing changes as needed lovenox plan for sx next week. Nic Lemus Apr 19, 2017 08:21
[2017-04-19] MEDS: DOCUSATE SODIUM 50 MG/SENNA 8.6 MG TAB PO SCH ×2 (09:49→22:31)
[2017-04-19] MEDS: SODIUM CHLORIDE 0.9% FLUSH 10 ML FLUSH IV FLUSH SCH ×2 (09:50→22:32)
[2017-04-19] MEDS: ENOXAPARIN SODIUM 30 MG/0.3 ML SYRINGE SQ SCH (10:35)
[2017-04-19] MEDS: SODIUM CHLORIDE 0.9% FLUSH 10 ML FLUSH IV FLUSH PRN ×3 (10:36→18:36)
[2017-04-19] MEDS: HYDROmorphone HCL PF 1 MG/ML VIAL IV PUSH PRN (10:36)
--- NOTE | 2017-04-19 12:14 | HHI.PR ---
Subjective Subjective Notes PTD: 2 Patient out of bed and sitting in a chair. No distress noted. Family at bedside. Patient complains of pain to left arm and left ankle. Objective Vitals/I&O Vital Signs Date Time Temp Pulse Resp B/P (MAP) Pulse Ox O2 Delivery O2 Flow Rate FiO2 04/19/17 08:00 98.0 78 18 143/96 (112) 96 04/18/17 13:55 Nasal Cannula 2 Labs Laboratory Tests Test 04/17/17 10:40 04/18/17 07:16 Bedside Hemoglobin 15.3 G/DL Bedside Hematocrit 45.0 % Prothrombin Time 10.4 SEC Prothromb Time International Ratio 0.9 RATIO Activated Partial Thromboplast Time 25.9 SEC Bedside Sodium 141 MMOL/L Bedside Potassium 3.8 MMOL/L Bedside Chloride 104 MMOL/L Bedside Blood Urea Nitrogen 19 MG/DL Bedside Creatinine 0.8 MG/DL Bedside Glucose 125 MG/DL White Blood Count 9.3 TH/MM3 Red Blood Count 4.65 MIL/MM3 Hemoglobin 14.9 GM/DL Hematocrit 43.7 % Mean Corpuscular Volume 94.1 FL Mean Corpuscular Hemoglobin 32.1 PG Mean Corpuscular Hemoglobin Concent 34.1 % Red Cell Distribution Width 12.7 % Platelet Count 184 TH/MM3 Mean Platelet Volume 7.5 FL Neutrophils (%) (Auto) 73.4 % Lymphocytes (%) (Auto) 15.1 % Monocytes (%) (Auto) 8.3 % Eosinophils (%) (Auto) 2.9 % Basophils (%) (Auto) 0.3 % Neutrophils # (Auto) 6.8 TH/MM3 Lymphocytes # (Auto) 1.4 TH/MM3 Monocytes # (Auto) 0.8 TH/MM3 Eosinophils # (Auto) 0.3 TH/MM3 Basophils # (Auto) 0.0 TH/MM3 CBC Comment DIFF FINAL Differential Comment Blood Urea Nitrogen 13 MG/DL Creatinine 0.82 MG/DL Random Glucose 105 MG/DL Calcium Level 8.4 MG/DL Sodium Level 134 MEQ/L Potassium Level 3.9 MEQ/L Chloride Level 100 MEQ/L Carbon Dioxide Level 26.3 MEQ/L Anion Gap 8 MEQ/L Estimat Glomerular Filtration Rate 99 ML/MIN Narrative Exam GENERAL: This is a 51 year old male out of bed sitting in a chair. No distress noted. SKIN: Warm and dry. HEAD: Atraumatic. Normocephalic. EYES: PERRLA ENT: No nasal bleeding or discharge. Mucous membranes pink and moist. NECK: Trachea midline. No JVD. CARDIOVASCULAR: Regular rate and rhythm. RESPIRATORY: No accessory muscle use. Lungs are clear to auscultation. Breath sounds equal bilaterally. No distress or dyspnea. GASTROINTESTINAL: BS + x 4 quads. Abdomen soft, non-tender, nondistended. MUSCULOSKELETAL: Extremities without cyanosis, or edema. LEFT arm in a sling. LEFT wrist ex-fix in place and wrapped in Thuan bandage. LEFT ankle ex-fix in place and wrapped in Thuan bandage. Pin sites intact. + peripheral pulses x 4 extremities. Warm with good capillary refill and sensation. MAEW. NEUROLOGICAL: Awake and alert. Normal speech and pattern. A/P Problem List: (1) Fall from ladder ICD Codes: W11.XXXA - Fall on and from ladder, initial encounter Status: Acute (2) Wrist fracture, closed ICD Codes: S62.109A - Fracture of unspecified carpal bone, unspecified wrist, initial encounter for closed fracture Status: Acute (3) Fracture of distal end of tibia with fibula ICD Codes: S82.309A - Unspecified fracture of lower end of unspecified tibia, initial encounter for closed fracture; S82.839A - Other fracture of upper and lower end of unspecified fibula, initial encounter for closed fracture Status: Acute Assessment and Plan [place]: 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 No LOC. GCS 15. INJURIES: C3-C4 and C4-C5 bilateral foraminal narrowing LEFT distal radius/ulna fracture LEFT tib-fib fracture Procedures: 04/18: Ex-fix LEFT wrist; ORIF LEFT radius. ORIF LEFT distal tib/fib fx. Ex- fix LEFT ankle. Surgery next week Consults: Orthopedics. Case management. Diet: Regular diet. Tolerating po diet. Encourage good po intake with each meal. Pulmonary: Encourage good pulmonary toileting. IS at bedside and pt encouraged to use. Rationale for use explained to patient, and verbalized understanding. PAIN Management: [place] 10 mg q 3 hours. Morphine 4 mg every 3 hours for breakthrough pain. Activity: OOB. PT and OT ordered. (NWDick LINGE; NWDick TOLEDOE) GI prophylaxis: Protonix po. Bowel regimen: Brianna-colace and MOM. LBM: 0 DVT prophylaxis: Mechanical VTE with SCDs. Chemical management with Lovenox 40 QD SQ. DC Planning: Case management consulted for assistance with final discharge disposition. Emotional support provided to patient and family at bedside and plan of care discussed. Discussed with RN at bedside. Patient is hemodynamically stable and being managed on the med/surg floor. The trauma team will round each day, and evaluate plan of care on a daily basis. C3-C4 and C4-C5 bilateral foraminal narrowing LEFT distal radius/ulna fracture LEFT tib-fib fracture Orthopedics consulted and assisting in management and care 04/18: Ex-fix LEFT wrist; ORIF LEFT radius. ORIF LEFT distal tib/fib fx. Ex-fix LEFT ankle. Plan for return to Surgery next week OOB PT and OT ordered KENNY DIEGO; KENNY IBARRA Pain management DVT prophylaxis Problem Qualifiers (1) Fall from ladder: Qualified Codes: W11.XXXA - Fall on and from ladder, initial encounter (2) Wrist fracture, closed: Qualified Codes: S62.102A - Fracture of unspecified carpal bone, left wrist, initial encounter for closed fracture (3) Fracture of distal end of tibia with fibula: Qualified Codes: S82.302A - Unspecified fracture of lower end of left tibia, initial encounter for closed fracture; S82.832A - Other fracture of upper and lower end of left fibula, initial encounter for closed fracture Samantha Bustillos Apr 19, 2017 12:14
[2017-04-19] MEDS: PANTOPRAZOLE SOD 40 MG DELAYED RELEASE TAB PO SCH (13:10)
[2017-04-19] MEDS: MORPHINE SULFATE 4 MG/ML INJ IV PUSH PRN (18:37)
[2017-04-19] MEDS: MAGNESIUM HYDROXIDE SUSP 30 ML CUP PO SCH (22:32)
[2017-04-20 00:19] VITALS: BP 129/83; PULSE 84; RESP 18; TEMP 96.9; O2SAT 98
[2017-04-20 07:48] VITALS: BP 150/95; PULSE 79; RESP 18; TEMP 98.2; O2SAT 97
[2017-04-20] MEDS: KETOROLAC TROMETHAMINE 30 MG/ML (IVP) VIAL IVP SCH (07:54)
--- NOTE | 2017-04-20 08:13 | PD.ORT.PN ---
Subjective Subjective Remarks in room translating. pain controlled. Objective Vitals Vital Signs Date Time Temp Pulse Resp B/P (MAP) Pulse Ox O2 Delivery O2 Flow Rate FiO2 04/20/17 00:19 96.9 84 18 129/83 (98) 98 04/19/17 20:05 98.6 79 18 156/95 (115) 96 04/19/17 18:12 96 21 04/19/17 16:00 98.8 78 18 152/81 (104) 98 04/19/17 12:00 97.4 83 18 127/81 (96) 97 04/19/17 11:55 21 I/O 04/19/17 04/19/17 04/19/17 04/20/17 04/20/17 04/20/17 07:00 15:00 23:00 07:00 15:00 23:00 Intake Total 488 ml 960 ml 480 ml 120 ml 100 ml Output Total 350 ml 500 ml 300 ml Balance 138 ml 960 ml -20 ml -180 ml 100 ml Intake Oral 240 ml 960 ml 480 ml 120 ml IV Total 248 ml 100 ml Output Urine Total 350 ml 500 ml 300 ml # Voids 6 # Bowel Movements 0 0 1 0 Result Diagram: 04/18/17 0716 04/18/17 0716 Imaging Last 24 hours Impressions Pelvis X-Ray 04/17/17 1037 Signed Impressions: Service Date/Time: April 10:30 - CONCLUSION: 1. No acute fracture or dislocation. Hugo Clay MD Head CT 04/17/17 1037 Signed Impressions: Service Date/Time: April 10:58 - CONCLUSION: Normal examination. Morales Chapman MD Chest X-Ray 04/17/17 1037 Signed Impressions: Service Date/Time: April 10:30 - CONCLUSION: 1. Negative portable chest status post trauma. Hugo Clay MD Cervical Spine CT 04/17/17 1037 Signed Impressions: Service Date/Time: April 10:58 - CONCLUSION: 1. No acute fracture or prevertebral soft tissue swelling. 2. Mild bilateral foraminal narrowing at C4-5 and C3-4. 3. Mild cervical spondylosis at C4-5 and C3-4. Straightening of the normal cervical lordosis. Chip Rhoades MD Objective Remarks Left upper extremity: ex-fix intact. dressing c/d/i. nvi. sensation intact. cap refill Left lower extremity: ex-fix intact. swelling improved. compartments soft. nvi. sensation intact. cap refill. Assessment & Plan Assessment and Plan Left distal radius and left distal tibia/fibula fracture - ex-fix POD#2 NWB LUE and LLE swelling improving Ice dressing changes as needed hold lovenox for possible sx tomorrow NPO after midnight Nic Lemus Apr 20, 2017 08:13
[2017-04-20] MEDS: ENOXAPARIN SODIUM 30 MG/0.3 ML SYRINGE SQ SCH (10:11)
[2017-04-20] MEDS: DOCUSATE SODIUM 50 MG/SENNA 8.6 MG TAB PO SCH ×2 (10:12→20:35)
[2017-04-20] MEDS: SODIUM CHLORIDE 0.9% FLUSH 10 ML FLUSH IV FLUSH SCH ×2 (10:13→20:35)
--- NOTE | 2017-04-20 13:21 | HHI.PR ---
Subjective Subjective Notes OOB in chair No complaints Objective Vitals/I&O Vital Signs Date Time Temp Pulse Resp B/P (MAP) Pulse Ox O2 Delivery O2 Flow Rate FiO2 04/20/17 07:48 98.2 79 18 150/95 (113) 97 04/19/17 18:12 21 04/18/17 13:55 Nasal Cannula 2 Labs Laboratory Tests Test 04/17/17 10:40 04/18/17 07:16 Bedside Hemoglobin 15.3 G/DL Bedside Hematocrit 45.0 % Prothrombin Time 10.4 SEC Prothromb Time International Ratio 0.9 RATIO Activated Partial Thromboplast Time 25.9 SEC Bedside Sodium 141 MMOL/L Bedside Potassium 3.8 MMOL/L Bedside Chloride 104 MMOL/L Bedside Blood Urea Nitrogen 19 MG/DL Bedside Creatinine 0.8 MG/DL Bedside Glucose 125 MG/DL White Blood Count 9.3 TH/MM3 Red Blood Count 4.65 MIL/MM3 Hemoglobin 14.9 GM/DL Hematocrit 43.7 % Mean Corpuscular Volume 94.1 FL Mean Corpuscular Hemoglobin 32.1 PG Mean Corpuscular Hemoglobin Concent 34.1 % Red Cell Distribution Width 12.7 % Platelet Count 184 TH/MM3 Mean Platelet Volume 7.5 FL Neutrophils (%) (Auto) 73.4 % Lymphocytes (%) (Auto) 15.1 % Monocytes (%) (Auto) 8.3 % Eosinophils (%) (Auto) 2.9 % Basophils (%) (Auto) 0.3 % Neutrophils # (Auto) 6.8 TH/MM3 Lymphocytes # (Auto) 1.4 TH/MM3 Monocytes # (Auto) 0.8 TH/MM3 Eosinophils # (Auto) 0.3 TH/MM3 Basophils # (Auto) 0.0 TH/MM3 CBC Comment DIFF FINAL Differential Comment Blood Urea Nitrogen 13 MG/DL Creatinine 0.82 MG/DL Random Glucose 105 MG/DL Calcium Level 8.4 MG/DL Sodium Level 134 MEQ/L Potassium Level 3.9 MEQ/L Chloride Level 100 MEQ/L Carbon Dioxide Level 26.3 MEQ/L Anion Gap 8 MEQ/L Estimat Glomerular Filtration Rate 99 ML/MIN Radiology Last Impressions Wrist X-Ray 9/15/17 0000 Signed Impressions: Service Date/Time: Tuesday, April 18, 2017 11:56 - CONCLUSION: 1. Good alignment of the patient's distal radial fracture post plating. Dakota Chavez MD Ankle X-Ray 04/18/17 0000 Signed Impressions: Service Date/Time: Tuesday, April 18, 2017 11:56 - CONCLUSION: 1. Good alignment of the tibial and fibular fractures post placement of an external fixator. aDkota Chavez MD Pelvis X-Ray 04/17/17 1037 Signed Impressions: Service Date/Time: April 10:30 - CONCLUSION: 1. No acute fracture or dislocation. Hugo Clay MD Head CT 04/17/17 1037 Signed Impressions: Service Date/Time: April 10:58 - CONCLUSION: Normal examination. Morales Chapman MD Chest X-Ray 04/17/17 1037 Signed Impressions: Service Date/Time: April 10:30 - CONCLUSION: 1. Negative portable chest status post trauma. Hugo Clay MD Cervical Spine CT 04/17/17 1037 Signed Impressions: Service Date/Time: April 10:58 - CONCLUSION: 1. No acute fracture or prevertebral soft tissue swelling. 2. Mild bilateral foraminal narrowing at C4-5 and C3-4. 3. Mild cervical spondylosis at C4-5 and C3-4. Straightening of the normal cervical lordosis. Chip Rhoades MD Chest CT 04/17/17 0000 Signed Impressions: Service Date/Time: April 10:58 - CONCLUSION: 1. No evidence of intrathoracic trauma. 2. Minimal posterior atelectatic changes bilaterally. 3. Tiny bulla within the right lower lobe. Chip Rhoades MD Abdomen/Pelvis CT 04/17/17 0000 Signed Impressions: Service Date/Time: April 10:58 - CONCLUSION: 1. No evidence of intra-abdominal trauma. 2. Hepatomegaly. 3. Left inguinal hernia containing only fat. Chip Rhoades MD Narrative Exam GENERAL: 51 year old well-nourished male OOB in chair with feet elevated. SKIN: Warm and dry. HEAD:Normocephalic. ENT: No nasal bleeding or discharge. Mucous membranes pink and moist. NECK: Trachea midline. No JVD. CARDIOVASCULAR: Regular rate and rhythm. RESPIRATORY: No accessory muscle use. Clear to auscultation. Breath sounds equal bilaterally. GASTROINTESTINAL: Abdomen soft, non-tender, nondistended. MUSCULOSKELETAL: Extremities without cyanosis, +1 LLE edema. LLE ex-fix in place , pin sites clean. LUE soft splint and sling in place. MAEW, + sensation and pulses x4. NEUROLOGICAL: Awake and alert. Normal speech. A/P Problem List: (1) Fall from ladder ICD Codes: W11.XXXA - Fall on and from ladder, initial encounter Status: Acute (2) Wrist fracture, closed ICD Codes: S62.109A - Fracture of unspecified carpal bone, unspecified wrist, initial encounter for closed fracture Status: Acute (3) Fracture of distal end of tibia with fibula ICD Codes: S82.309A - Unspecified fracture of lower end of unspecified tibia, initial encounter for closed fracture; S82.839A - Other fracture of upper and lower end of unspecified fibula, initial encounter for closed fracture Status: Acute Assessment and Plan INJURIES: LEFT distal radius/ulna fracture LEFT tib-fib fracture 04/18: Ex-fix LEFT wrist; ORIF LEFT radius. ORIF LEFT distal tib/fib fx. Ex-fix LEFT ankle. Diet: Regular, tolerating Pulmonary: IS Pain: [place]. Morphine IV. Activity: OOB. PT and OT ordered. (NWB LUE; NWB LLE) GI: Protonix po Bowel: Brianna-Colace BID. MOM. LBM: 04/20 DVT: SCDs. Lovenox 40 QD. LEFT distal radius/ulna fracture, LEFT tib-fib fracture Orthopedics consulted 04/18: Ex-fix LEFT wrist; ORIF LEFT radius. ORIF LEFT distal tib/fib fx. Ex-fix LEFT ankle Pin care BID OOB- PT and OT ordered NWB LUE; NWB LLE Pain control Lovenox Ortho planning surgery next week Plan of care discussed with patient at bedside. CM consulted to assist with DC planning. Problem Qualifiers (1) Fall from ladder: Qualified Codes: W11.XXXA - Fall on and from ladder, initial encounter (2) Wrist fracture, closed: Qualified Codes: S62.102A - Fracture of unspecified carpal bone, left wrist, initial encounter for closed fracture (3) Fracture of distal end of tibia with fibula: Qualified Codes: S82.302A - Unspecified fracture of lower end of left tibia, initial encounter for closed fracture; S82.832A - Other fracture of upper and lower end of left fibula, initial encounter for closed fracture Niyah Brooks Apr 20, 2017 13:20
[2017-04-20] MEDS: SODIUM CHLORIDE 0.9% FLUSH 10 ML FLUSH IV FLUSH PRN ×2 (13:57→18:28)
[2017-04-20] MEDS: MORPHINE SULFATE 4 MG/ML INJ IV PUSH PRN ×3 (13:57→21:56)
[2017-04-20] MEDS: PANTOPRAZOLE SOD 40 MG DELAYED RELEASE TAB PO SCH (13:57)
[2017-04-20 16:00] VITALS: BP 154/81; PULSE 98; RESP 18; TEMP 99.9; O2SAT 96
[2017-04-20 20:00] VITALS: BP 152/85; PULSE 94; RESP 18; TEMP 101.2; O2SAT 97
[2017-04-20 20:17] VITALS: BP 152/85; PULSE 94; RESP 18; TEMP 101.7; O2SAT 97
[2017-04-20] MEDS: ACETAMINOPHEN/HYDROcodone 325 MG/10 MG TAB PO PRN (20:33)
[2017-04-20] MEDS: MAGNESIUM HYDROXIDE SUSP 30 ML CUP PO SCH (20:35)
[2017-04-20] MEDS ORDERED: ACETAMINOPHEN 325 MG TAB PO PRN (21:45)
[2017-04-21 00:16] VITALS: BP 125/69; PULSE 95; RESP 18; TEMP 99.2; O2SAT 96
[2017-04-21] MEDS ORDERED: CHLORHEXIDINE GLUCONATE 2 % 1 PACK (2 CLOTHS) TOPICAL PRN (02:00)
[2017-04-21] MEDS ORDERED: METOPROLOL TARTRATE 25 MG TAB PO PRN (02:00)
[2017-04-21] MEDS ORDERED: LACTATED RINGER'S 1000 ML IV PRN (02:00)
[2017-04-21] MEDS ORDERED: POVIDONE IODINE 5% (ANTISEPSIS KIT) 4 APPLICATIONS EACH NARE PRN (02:00)
[2017-04-21] MEDS ORDERED: SODIUM CHLORID 0.9% 500 ML IV PRN (02:00)
[2017-04-21] MEDS ORDERED: INSULIN HUMAN REGULAR 1,000 UNITS/10 ML VIAL SQ PRN (02:00)
[2017-04-21 04:50] VITALS: BP 125/75; PULSE 94; RESP 18; TEMP 99; O2SAT 96
--- NOTE | 2017-04-21 06:41 | PD.ORT.PN ---
Subjective Subjective Remarks POD 3 s/p ORIF with application of exfix left wrist POD 3 s/p exfix left distal tibia doing well. pain controlled. no complaints. Objective Vitals Vital Signs Date Time Temp Pulse Resp B/P (MAP) Pulse Ox O2 Delivery O2 Flow Rate FiO2 04/21/17 04:50 99.0 94 18 125/75 (92) 96 04/21/17 00:16 99.2 95 18 125/69 (87) 96 04/20/17 20:17 101.7 94 18 152/85 (107) 97 04/20/17 20:00 101.2 94 18 152/85 (107) 97 04/20/17 16:00 99.9 98 18 154/81 (105) 96 04/20/17 07:48 98.2 79 18 150/95 (113) 97 I/O 04/20/17 04/20/17 04/20/17 04/21/17 04/21/17 04/21/17 07:00 15:00 23:00 07:00 15:00 23:00 Intake Total 120 ml 1060 ml 240 ml Output Total 300 ml 400 ml Balance -180 ml 1060 ml -160 ml Intake Oral 120 ml 960 ml 240 ml IV Total 100 ml Output Urine Total 300 ml 400 ml # Voids 4 # Bowel Movements 0 1 0 Result Diagram: 04/18/17 0716 04/18/17 0716 Imaging Last 24 hours Impressions Pelvis X-Ray 04/17/17 1037 Signed Impressions: Service Date/Time: April 10:30 - CONCLUSION: 1. No acute fracture or dislocation. Hugo Clay MD Head CT 04/17/17 1037 Signed Impressions: Service Date/Time: April 10:58 - CONCLUSION: Normal examination. Morales Chapman MD Chest X-Ray 04/17/17 1037 Signed Impressions: Service Date/Time: April 10:30 - CONCLUSION: 1. Negative portable chest status post trauma. Huog Clay MD Cervical Spine CT 04/17/17 1037 Signed Impressions: Service Date/Time: April 10:58 - CONCLUSION: 1. No acute fracture or prevertebral soft tissue swelling. 2. Mild bilateral foraminal narrowing at C4-5 and C3-4. 3. Mild cervical spondylosis at C4-5 and C3-4. Straightening of the normal cervical lordosis. Chip Rhoades MD Objective Remarks Left upper extremity: ex-fix intact. dressing c/d/i. nvi. sensation intact. cap refill Left lower extremity: ex-fix intact. swelling improved. compartments soft. nvi. sensation intact. cap refill. Assessment & Plan Assessment and Plan 1) Left Distal Radius Fx s/p ORIF and application of exfix - POD 3 2) Left Distal Tibia Fx s/p Exfix - POD 3 NWB LUE and LLE swelling improving Ice dressing changes as needed pin care BID regular diet today NPO after MN sign consents toradol 30mg Q8H x 2 doses Lovenox 30mg x 1 dose this morning. hold after AM dose plan for surgery tomorrow Jose Reynaga Apr 21, 2017 06:41
--- NOTE | 2017-04-21 06:43 | RADRPT ---
EXAM DATE/TIME: 04/21/2017 05:38 [place] COMPARISON: CHEST SINGLE AP, April 17, 2017, 10:30. INDICATIONS : Fever, short of breath MEDICAL HISTORY : left arm, left leg fractures SURGICAL HISTORY : left arm and left leg ENCOUNTER: Subsequent ACUITY: 4 - 6 days PAIN SCORE: 5/10 LOCATION: Bilateral chest FINDINGS: A single view of the chest demonstrates the lungs to be symmetrically aerated without evidence of mas s, infiltrate or effusion. The cardiomediastinal contours are unremarkable. Osseous structures are intact. CONCLUSION: Normal examination. Gaudencio Villalpando Jr., MD on April 21, 2017 at 6:42 Board Certified Radiologist. This report was verified electronically.
[2017-04-21] MEDS: MORPHINE SULFATE 4 MG/ML INJ IV PUSH PRN (07:09)
[2017-04-21 07:16] LABS: AUTOMATED NEUTROPHIL # 4.6 TH/MM3 (1.8-7.7); BASOPHIL % 0.3 % (0.0-2.0); EOSINOPHIL % 0.6 % (0.0-4.0); HEMATOCRIT 40.7 % (39.0-51.0); HEMO FLAGS DIFF FINAL; LYMPH % 11.3 % (9.0-44.0); LYMPHOCYTE # 0.7 TH/MM3 (1.0-4.8); MEAN CORPUSCULAR HEMOGLOBIN 32.1 PG (27.0-34.0); MEAN CORPUSCULAR HGB CONC 34.5 % (32.0-36.0); MONO % 8.7 % (0.0-8.0); NEUT % 79.1 % (16.0-70.0); PLATELET COUNT 164 TH/MM3 (150-450); RED BLOOD COUNT 4.37 MIL/MM3 (4.50-5.90); RED CELL DISTRIBUTION WIDTH 12.3 % (11.6-17.2); WHITE BLOOD COUNT 5.8 TH/MM3 (4.0-11.0)
[2017-04-21 07:20] LABS: APTT (PATIENT) 31.3 SEC (24.3-30.1); PROTHROMBIN TIME - PATIENT 10.8 SEC (9.8-11.6)
[2017-04-21 08:00] VITALS: BP 142/81; PULSE 83; RESP 18; TEMP 98.5; O2SAT 97
[2017-04-21] MEDS ORDERED: ENOXAPARIN SODIUM 30 MG/0.3 ML SYRINGE SQ ONE (08:00)
[2017-04-21] MEDS: KETOROLAC TROMETHAMINE 30 MG/ML (IVP) VIAL IV PUSH SCH ×2 (08:43→13:14)
[2017-04-21] MEDS: ACETAMINOPHEN/HYDROcodone 325 MG/10 MG TAB PO PRN ×3 (08:44→19:59)
[2017-04-21] MEDS: DOCUSATE SODIUM 50 MG/SENNA 8.6 MG TAB PO SCH ×2 (08:51→19:59)
[2017-04-21] MEDS: SODIUM CHLORIDE 0.9% FLUSH 10 ML FLUSH IV FLUSH SCH ×2 (08:51→19:59)
--- NOTE | 2017-04-21 10:59 | HHI.PR ---
Subjective Subjective Notes Complains of left arm pain Eating well Ortho planning surgery tomorrow Objective Vitals/I&O Vital Signs Date Time Temp Pulse Resp B/P (MAP) Pulse Ox O2 Delivery O2 Flow Rate FiO2 04/21/17 08:00 98.5 83 18 142/81 (101) 97 04/19/17 18:12 21 04/18/17 13:55 Nasal Cannula 2 Labs Laboratory Tests Test 04/21/17 06:58 White Blood Count 5.8 Red Blood Count 4.37 Hemoglobin 14.0 Hematocrit 40.7 Mean Corpuscular Volume 93.0 Mean Corpuscular Hemoglobin 32.1 Mean Corpuscular Hemoglobin Concent 34.5 Red Cell Distribution Width 12.3 Platelet Count 164 Mean Platelet Volume 7.0 Neutrophils (%) (Auto) 79.1 Lymphocytes (%) (Auto) 11.3 Monocytes (%) (Auto) 8.7 Eosinophils (%) (Auto) 0.6 Basophils (%) (Auto) 0.3 Neutrophils # (Auto) 4.6 Lymphocytes # (Auto) 0.7 Monocytes # (Auto) 0.5 Eosinophils # (Auto) 0.0 Basophils # (Auto) 0.0 CBC Comment DIFF FINAL Differential Comment Prothrombin Time 10.8 Prothromb Time International Ratio 1.0 Activated Partial Thromboplast Time 31.3 Radiology Last Impressions Wrist X-Ray 04/18/17 0000 Signed Impressions: Service Date/Time: Tuesday, April 18, 2017 11:56 - CONCLUSION: 1. Good alignment of the patient's distal radial fracture post plating. Dakota Chavez MD Ankle X-Ray 04/18/17 0000 Signed Impressions: Service Date/Time: Tuesday, April 18, 2017 11:56 - CONCLUSION: 1. Good alignment of the tibial and fibular fractures post placement of an external fixator. Dakota Chavez MD Pelvis X-Ray 04/17/17 1037 Signed Impressions: Service Date/Time: April 10:30 - CONCLUSION: 1. No acute fracture or dislocation. uHgo Clay MD Head CT 04/17/17 1037 Signed Impressions: Service Date/Time: April 10:58 - CONCLUSION: Normal examination. Morales Chapman MD Chest X-Ray 04/17/17 1037 Signed Impressions: Service Date/Time: April 10:30 - CONCLUSION: 1. Negative portable chest status post trauma. Hugo Clay MD Cervical Spine CT 04/17/17 1037 Signed Impressions: Service Date/Time: April 10:58 - CONCLUSION: 1. No acute fracture or prevertebral soft tissue swelling. 2. Mild bilateral foraminal narrowing at C4-5 and C3-4. 3. Mild cervical spondylosis at C4-5 and C3-4. Straightening of the normal cervical lordosis. Chip Rhoades MD Chest CT 04/17/17 0000 Signed Impressions: Service Date/Time: April 10:58 - CONCLUSION: 1. No evidence of intrathoracic trauma. 2. Minimal posterior atelectatic changes bilaterally. 3. Tiny bulla within the right lower lobe. Chip Rhoades MD Abdomen/Pelvis CT 04/17/17 0000 Signed Impressions: Service Date/Time: April 10:58 - CONCLUSION: 1. No evidence of intra-abdominal trauma. 2. Hepatomegaly. 3. Left inguinal hernia containing only fat. Chip Rhoades MD Narrative Exam GENERAL: 51 year old well-nourished male lying in bed. SKIN: Warm and dry. HEAD:Normocephalic. ENT: No nasal bleeding or discharge. Mucous membranes pink and moist. NECK: Trachea midline. No JVD. CARDIOVASCULAR: Regular rate and rhythm. RESPIRATORY: No accessory muscle use. Clear to auscultation. Breath sounds equal bilaterally. GASTROINTESTINAL: Abdomen soft, non-tender, nondistended. MUSCULOSKELETAL: Extremities without cyanosis, +1 LLE and +2 LUE edema. LLE ex- fix in place. LUE ex-fix and sling in place. MAEW, + sensation and pulses x4. NEUROLOGICAL: Awake and alert. Normal speech. A/P Problem List: (1) Fall from ladder ICD Codes: W11.XXXA - Fall on and from ladder, initial encounter Status: Acute (2) Wrist fracture, closed ICD Codes: S62.109A - Fracture of unspecified carpal bone, unspecified wrist, initial encounter for closed fracture Status: Acute (3) Fracture of distal end of tibia with fibula ICD Codes: S82.309A - Unspecified fracture of lower end of unspecified tibia, initial encounter for closed fracture; S82.839A - Other fracture of upper and lower end of unspecified fibula, initial encounter for closed fracture Status: Acute Assessment and Plan INJURIES: LEFT distal radius/ulna fracture LEFT tib-fib fracture 04/18: Ex-fix LEFT wrist; ORIF LEFT radius. ORIF LEFT distal tib/fib fx. Ex-fix LEFT ankle. Diet: Regular, tolerating Pulmonary: IS Pain: [place]. Morphine IV. Patient encouraged to take PO meds first and use Morphine for breakthrough pain ONLY. Activity: OOB. PT and OT ordered. (NWB LUE; NWB LLE) GI: Protonix Bowel: Brianna-colace BID. MOM. LBM: 04/21 DVT: SCDs. Lovenox 30 QD. LEFT distal radius/ulna fracture, LEFT tib-fib fracture Orthopedics consulted 04/18: Ex-fix LEFT wrist; ORIF LEFT radius. ORIF LEFT distal tib/fib fx. Ex-fix LEFT ankle Pin care BID OOB- PT and OT ordered NWB LUE; NWB LLE Pain control Lovenox Ortho planning surgery tomorrow Plan of care discussed with patient at bedside. CM consulted to assist with DC planning. Problem Qualifiers (1) Fall from ladder: Qualified Codes: W11.XXXA - Fall on and from ladder, initial encounter (2) Wrist fracture, closed: Qualified Codes: S62.102A - Fracture of unspecified carpal bone, left wrist, initial encounter for closed fracture (3) Fracture of distal end of tibia with fibula: Qualified Codes: S82.302A - Unspecified fracture of lower end of left tibia, initial encounter for closed fracture; S82.832A - Other fracture of upper and lower end of left fibula, initial encounter for closed fracture Niyah Brooks Apr 21, 2017 10:59
[2017-04-21 12:00] VITALS: BP 126/67; PULSE 90; RESP 17; TEMP 98.6; O2SAT 94
--- NOTE | 2017-04-21 12:15 | EKG ---
Date Performed: 04/21/2017 Time Performed: 04:31:52 PTAGE: 51 years EKG: Sinus rhythm Possible inferior infarct - age undetermined Abnormal ECG NO PREVIOUS TRACING DOCTOR: Capo Barrett Interpretating Date/Time 04/21/2017 12:13:56
[2017-04-21] MEDS: PANTOPRAZOLE SOD 40 MG DELAYED RELEASE TAB PO SCH (13:14)
[2017-04-21 16:00] VITALS: BP 108/60; PULSE 76; RESP 18; TEMP 97.2; O2SAT 97
[2017-04-21] MEDS: MAGNESIUM HYDROXIDE SUSP 30 ML CUP PO SCH (19:59)
[2017-04-21 20:16] VITALS: BP 118/75; PULSE 77; RESP 18; TEMP 97.6; O2SAT 97
[2017-04-22] MEDS: ACETAMINOPHEN/HYDROcodone 325 MG/10 MG TAB PO PRN ×4 (00:35→20:25)
[2017-04-22 00:51] VITALS: BP 114/72; PULSE 86; RESP 18; TEMP 96.3; O2SAT 97
[2017-04-22 04:32] VITALS: BP 132/72; PULSE 90; RESP 18; TEMP 98.3; O2SAT 96
[2017-04-22] MEDS: ONDANSETRON HCL 4 MG/2 ML VIAL IV PRN (06:47)
--- NOTE | 2017-04-22 06:47 | PD.ORT.PN ---
Subjective Subjective Remarks Pain controlled Objective Vitals Vital Signs Date Time Temp Pulse Resp B/P (MAP) Pulse Ox O2 Delivery O2 Flow Rate FiO2 04/22/17 05:04 16 04/22/17 04:32 98.3 90 18 132/72 (92) 96 04/22/17 02:00 Room Air 04/22/17 00:51 96.3 86 18 114/72 (86) 97 04/21/17 20:16 97.6 77 18 118/75 (89) 97 04/21/17 16:00 97.2 76 18 108/60 (76) 97 04/21/17 12:00 98.6 90 17 126/67 (86) 94 04/21/17 08:00 98.5 83 18 142/81 (101) 97 I/O 04/21/17 04/21/17 04/21/17 04/22/17 04/22/17 04/22/17 07:00 15:00 23:00 07:00 15:00 23:00 Intake Total 0 ml 720 ml 240 ml 0 ml Output Total 200 ml 200 ml 400 ml Balance -200 ml 720 ml 40 ml -400 ml Intake Oral 0 ml 720 ml 240 ml 0 ml Output Urine Total 200 ml 200 ml 400 ml # Voids 3 # Bowel Movements 0 0 0 0 Result Diagram: 04/21/17 0658 04/18/17 0716 Other Results Laboratory Tests Test 04/21/17 06:58 Prothromb Time International Ratio 1.0 RATIO Prothrombin Time 10.8 SEC (9.8-11.6) Imaging Last 24 hours Impressions Pelvis X-Ray 04/17/17 1037 Signed Impressions: Service Date/Time: April 10:30 - CONCLUSION: 1. No acute fracture or dislocation. Hugo Clay MD Head CT 04/17/17 1037 Signed Impressions: Service Date/Time: April 10:58 - CONCLUSION: Normal examination. Morales Chapman MD Chest X-Ray 04/17/17 1037 Signed Impressions: Service Date/Time: April 10:30 - CONCLUSION: 1. Negative portable chest status post trauma. Hugo Clay MD Cervical Spine CT 04/17/17 1037 Signed Impressions: Service Date/Time: April 10:58 - CONCLUSION: 1. No acute fracture or prevertebral soft tissue swelling. 2. Mild bilateral foraminal narrowing at C4-5 and C3-4. 3. Mild cervical spondylosis at C4-5 and C3-4. Straightening of the normal cervical lordosis. Chip Rhoades MD Objective Remarks Left upper extremity: ex-fix intact. dressing c/d/i. nvi. sensation intact. cap refill Left lower extremity: ex-fix intact. swelling improved. compartments soft. nvi. sensation intact. cap refill. Assessment & Plan Assessment and Plan 1) Left Distal Radius Fx s/p ORIF and application of exfix - POD 4 2) Left Distal Tibia Fx s/p Exfix - POD 4 NWB LUE and LLE swelling improving Ice dressing changes as needed pin care BID regular diet today NPO sign consents hold Lovenox plan for surgery today Luis Jacobson Jr. Apr 22, 2017 06:47
[2017-04-22 08:00] VITALS: BP 129/78; PULSE 86; RESP 18; TEMP 98.6; O2SAT 96
[2017-04-22] MEDS: SODIUM CHLORIDE 0.9% FLUSH 10 ML FLUSH IV FLUSH SCH ×2 (09:00→20:25)
[2017-04-22] MEDS: DOCUSATE SODIUM 50 MG/SENNA 8.6 MG TAB PO SCH ×2 (09:00→20:24)
[2017-04-22] MEDS ORDERED: PROPOFOL 200 MG/20 ML AMP IV ONE (09:39)
[2017-04-22] MEDS ORDERED: LACTATED RINGER'S 1000 ML INJ 1,000 ML IV ONE (09:39)
[2017-04-22] MEDS ORDERED: ONDANSETRON HCL 4 MG/2 ML VIAL IV PUSH ONE (09:39)
[2017-04-22] MEDS ORDERED: ROCURONIUM INJ 50 MG/5 ML SYRINGE IV PUSH ONE (09:39)
[2017-04-22] MEDS ORDERED: LIDOCAINE HCL 1% PF 5 ML AMPULE OTHER ONE (09:39)
[2017-04-22] MEDS ORDERED: MORPHINE SULFATE 4 MG/ML INJ IV ONE (09:39)
[2017-04-22] MEDS ORDERED: DEXAMETHASONE SOD PHOS 4 MG/ML VIAL IV ONE (09:39)
[2017-04-22] MEDS ORDERED: NEOSTIGMINE 3 MG/3 ML SYR IV ONE (09:39)
[2017-04-22] MEDS ORDERED: GLYCOPYRROLATE 0.2 MG/ML VIAL IV ONE (09:39)
[2017-04-22] MEDS ORDERED: LABETALOL HCL 100 MG/20 ML VIAL IV ONE (09:39)
[2017-04-22] MEDS ORDERED: VANCOMYCIN HCL 1000 MG VIAL ONE (10:06)
[2017-04-22] MEDS ORDERED: GENTAMICIN SULFATE 80 MG/2 ML VIAL ONE (10:06)
[2017-04-22] MEDS ORDERED: ceFAZolin 2 GM PREMIX 50 ML ONE (10:06)
[2017-04-22] MEDS ORDERED: ACETAMINOPHEN 1000 MG/100 ML 100 ML IV ONE (10:49)
[2017-04-22] MEDS ORDERED: WHEEMIS3 (11:00)
[2017-04-22] MEDS ORDERED: XARE10TA PO (11:00)
[2017-04-22] MEDS ORDERED: HYDR-3583 PO (11:00)
[2017-04-22] MEDS ORDERED: DEXAMETHASONE SOD PHOS 4 MG/ML VIAL ONE (11:18)
[2017-04-22] MEDS ORDERED: FAMOTIDINE 20 MG/2 ML VIAL ONE (11:18)
--- NOTE | 2017-04-22 12:41 | HHI.PR ---
Subjective Subjective Notes S/P ORIF left distal tibia and fibula fxs with removal of ex-fix Objective Vitals/I&O Vital Signs Date Time Temp Pulse Resp B/P (MAP) Pulse Ox O2 Delivery O2 Flow Rate FiO2 04/22/17 08:00 98.6 86 18 129/78 (95) 96 04/22/17 02:00 Room Air 04/19/17 18:12 21 04/18/17 13:55 2 Labs Laboratory Tests Test 04/17/17 10:40 04/18/17 07:16 04/21/17 06:58 Bedside Hemoglobin 15.3 G/DL Bedside Hematocrit 45.0 % Bedside Sodium 141 MMOL/L Bedside Potassium 3.8 MMOL/L Bedside Chloride 104 MMOL/L Bedside Blood Urea Nitrogen 19 MG/DL Bedside Creatinine 0.8 MG/DL Bedside Glucose 125 MG/DL Blood Urea Nitrogen 13 MG/DL Creatinine 0.82 MG/DL Random Glucose 105 MG/DL Calcium Level 8.4 MG/DL Sodium Level 134 MEQ/L Potassium Level 3.9 MEQ/L Chloride Level 100 MEQ/L Carbon Dioxide Level 26.3 MEQ/L Anion Gap 8 MEQ/L Estimat Glomerular Filtration Rate 99 ML/MIN White Blood Count 5.8 TH/MM3 Red Blood Count 4.37 MIL/MM3 Hemoglobin 14.0 GM/DL Hematocrit 40.7 % Mean Corpuscular Volume 93.0 FL Mean Corpuscular Hemoglobin 32.1 PG Mean Corpuscular Hemoglobin Concent 34.5 % Red Cell Distribution Width 12.3 % Platelet Count 164 TH/MM3 Mean Platelet Volume 7.0 FL Neutrophils (%) (Auto) 79.1 % Lymphocytes (%) (Auto) 11.3 % Monocytes (%) (Auto) 8.7 % Eosinophils (%) (Auto) 0.6 % Basophils (%) (Auto) 0.3 % Neutrophils # (Auto) 4.6 TH/MM3 Lymphocytes # (Auto) 0.7 TH/MM3 Monocytes # (Auto) 0.5 TH/MM3 Eosinophils # (Auto) 0.0 TH/MM3 Basophils # (Auto) 0.0 TH/MM3 CBC Comment DIFF FINAL Differential Comment Prothrombin Time 10.8 SEC Prothromb Time International Ratio 1.0 RATIO Activated Partial Thromboplast Time 31.3 SEC Radiology Last Impressions Wrist X-Ray 04/18/17 0000 Signed Impressions: Service Date/Time: Tuesday, April 18, 2017 11:56 - CONCLUSION: 1. Good alignment of the patient's distal radial fracture post plating. Dakota Chavez MD Ankle X-Ray 04/18/17 0000 Signed Impressions: Service Date/Time: Tuesday, April 18, 2017 11:56 - CONCLUSION: 1. Good alignment of the tibial and fibular fractures post placement of an external fixator. Dakota Chavez MD Pelvis X-Ray 04/17/17 1037 Signed Impressions: Service Date/Time: April 10:30 - CONCLUSION: 1. No acute fracture or dislocation. Hugo Clay MD Head CT 04/17/17 1037 Signed Impressions: Service Date/Time: April 10:58 - CONCLUSION: Normal examination. Morales Chapman MD Chest X-Ray 04/17/17 1037 Signed Impressions: Service Date/Time: April 10:30 - CONCLUSION: 1. Negative portable chest status post trauma. Hugo Clay MD Cervical Spine CT 04/17/17 1037 Signed Impressions: Service Date/Time: April 10:58 - CONCLUSION: 1. No acute fracture or prevertebral soft tissue swelling. 2. Mild bilateral foraminal narrowing at C4-5 and C3-4. 3. Mild cervical spondylosis at C4-5 and C3-4. Straightening of the normal cervical lordosis. Chip Rhoades MD Chest CT 04/17/17 0000 Signed Impressions: Service Date/Time: April 10:58 - CONCLUSION: 1. No evidence of intrathoracic trauma. 2. Minimal posterior atelectatic changes bilaterally. 3. Tiny bulla within the right lower lobe. Chpi Rhoades MD Abdomen/Pelvis CT 04/17/17 0000 Signed Impressions: Service Date/Time: April 10:58 - CONCLUSION: 1. No evidence of intra-abdominal trauma. 2. Hepatomegaly. 3. Left inguinal hernia containing only fat. Chip Rhoades MD Narrative Exam GENERAL: 51 year old well-nourished male lying in bed. SKIN: Warm and dry. HEAD:Normocephalic. ENT: No nasal bleeding or discharge. Mucous membranes pink and moist. NECK: Trachea midline. No JVD. CARDIOVASCULAR: Regular rate and rhythm. RESPIRATORY: No accessory muscle use. Clear to auscultation. Breath sounds equal bilaterally. GASTROINTESTINAL: Abdomen soft, non-tender, nondistended. MUSCULOSKELETAL: Extremities without cyanosis, +2 LUE edema. LLE soft splint in place. LUE ex-fix and sling in place. MAEW, + sensation and pulses x4. NEUROLOGICAL: Awake and alert. Normal speech. A/P Problem List: (1) Fall from ladder ICD Codes: W11.XXXA - Fall on and from ladder, initial encounter Status: Acute (2) Wrist fracture, closed ICD Codes: S62.109A - Fracture of unspecified carpal bone, unspecified wrist, initial encounter for closed fracture Status: Acute (3) Fracture of distal end of tibia with fibula ICD Codes: S82.309A - Unspecified fracture of lower end of unspecified tibia, initial encounter for closed fracture; S82.839A - Other fracture of upper and lower end of unspecified fibula, initial encounter for closed fracture Status: Acute Assessment and Plan INJURIES: LEFT distal radius/ulna fracture LEFT tib-fib fracture 04/18: Ex-fix LEFT wrist; ORIF LEFT radius. ORIF LEFT distal tib/fib fx. Ex-fix LEFT ankle. Diet: Regular, tolerating Pulmonary: IS Pain: [place]. Morphine IV. Patient encouraged to take PO meds first and use Morphine for breakthrough pain ONLY. Activity: OOB. PT and OT ordered. (NWB LUE; NWB LLE) GI: Protonix Bowel: Brianna-colace BID. MOM. LBM: 04/21 DVT: SCDs. Lovenox 30 QD LEFT distal radius/ulna fracture, LEFT tib-fib fracture Orthopedics consulted 04/18: Ex-fix LEFT wrist; ORIF LEFT radius. ORIF LEFT distal tib/fib fx. Ex-fix LEFT ankle OOB- PT and OT ordered NWB LUE; NWB LLE Pain control S/P ORIF left distal tibia and fibula fxs with removal of ex-fix CM consulted to assist with DC planning. Attending Statement The exam, history, and the medical decision-making described in the above note were completed with the assistance of the mid-level provider. I reviewed and agree with the findings presented. I attest that I had a [id number] encounter with the patient on the same day, and personally performed and documented my assessment and findings in the medical record. awake/alert today pain controlled working toward DC plan, likely home with family Problem Qualifiers (1) Fall from ladder: Qualified Codes: W11.XXXA - Fall on and from ladder, initial encounter (2) Wrist fracture, closed: Qualified Codes: S62.102A - Fracture of unspecified carpal bone, left wrist, initial encounter for closed fracture (3) Fracture of distal end of tibia with fibula: Qualified Codes: S82.302A - Unspecified fracture of lower end of left tibia, initial encounter for closed fracture; S82.832A - Other fracture of upper and lower end of left fibula, initial encounter for closed fracture Niyah Brooks Apr 22, 2017 12:41 Berto Moore MD May 06, 2017 23:54
[2017-04-22] MEDS ORDERED: Post-op Orders (for Pharmacy) MISC XX ONE (13:00)
[2017-04-22] MEDS ORDERED: MORPHINE SULFATE 4 MG/ML INJ IV PUSH PRN (13:00)
[2017-04-22] MEDS ORDERED: SODIUM CHLORIDE 0.9% FLUSH 5 ML FLUSH IVF PRN (13:00)
[2017-04-22] MEDS: PANTOPRAZOLE SOD 40 MG DELAYED RELEASE TAB PO SCH (13:00)
[2017-04-22] MEDS ORDERED: diphenhydrAMINE HCL 25 MG CAP PO PRN (13:00)
[2017-04-22] MEDS ORDERED: ACETAMINOPHEN/HYDROcodone 325 MG/10 MG TAB PO PRN (13:00)
--- NOTE | 2017-04-22 13:05 | PD.OP ---
cc: Boyd Brandon MD Operative Report Date of Surgery: Apr 22, 2017 Preoperative Diagnosis: Left distal tibia and fibula fractures Postoperative Diagnosis: Procedure: Open reduction internal fixation left distal tibia and fibula fractures, removal of external fixation Anesthesia: Gen. Surgeon: Boyd Brandon Social Science Professor(s): KHALIF Ross PA-C The surgical procedure was assisted by my physician food and nutrition services assistant. My P.A. presence was necessary throughout this case for the manipulation and positioning of the surgical extremity. My P.A. was assisting me throughout the duration of this procedure. The skill set of a physician food and nutrition services assistant was medically necessary to complete this procedure. During the surgical case the rn neurosurgical was working at the back table and the physician food and nutrition services assistant was directly assisting me. Operation and Findings: Informed consent was obtained for open reduction and internal fixation of left distal tibia and fibula fractures with removal of external fixation. Soft tissue was evaluated preoperatively and found to be suitable for surgery. Patient was brought to the operating placed on operating room table. Patient was given IV sedation and general anesthesia. Timeout procedure was performed, and IV antibiotics were given prior to procedure. Procedure began with removal of external fixation. Clamps were loosened. Clamps and bars were removed from the pins. The metatarsal pins were now removed. The tibia and calcaneus pins were left in place at this time. The operative leg was now prepped with alcohol followed by Hibiclens and draped usual sterile fashion. Attention was turned towards the distal fibula. A four-inch incision was made over the distal fibula. The subcutaneous tissue was dissected with Bovie. The fracture site was visualized. The fracture site was cleaned with curets. The fracture was now reduced. The fracture keyed into anatomic alignment. K-wires were used to hold provisional fixation. A Synthes plate was selected. The plate was provisionally held to bone with K-wires. 3.5 cortical screws were used to compress the plate to bone. Multiple cortical screws were placed above the fracture. Multiple locking screws were placed below the fracture. A 3 inch incision was now made over the medial aspect of the ankle. Saphenous vein was protected. A full thickness flap was now elevated. The distal medial tibia was now exposed. Attention was now turned towards reduction. The metaphyseal fragments were reduced first. Traction was applied and fracture fragments were manipulated. There were multiple metaphyseal fragments. These were manipulated in excellent reduction was achieved. Fracture tenaculums were used to reduce fractures. Multiple K wires were used to hold provisional fixation. Fluoroscopy confirmed excellent alignment of fractures. A Synthes medial distal tibial plate was selected. Plate was placed percutaneously along the medial aspect of the distal tibia. Plate was provisionally held to bone with K wires. 2.7 cortical screws and 3.5 cortical screws were used to compress plate to bone. Multiple screws were placed into the shaft. Multiple 2.7 locking screws were placed into the distal segment. All screws were predrilled and premeasured for appropriate lengths. Final fluoroscopy revealed well aligned fracture with well-placed hardware. The wound was now thoroughly irrigated. Subcutaneous tissues closed with 3-0 Vicryl and skin was closed with 3-0 nylon. Sterile dressings were applied with Xeroform 4 x 4's soft roll and a well-padded splint. The remaining external fixator pins were removed. Needle and sponge counts were correct. Patient was transferred to recovery room in stable condition. Boyd Brandon MD Apr 22, 2017 13:05
[2017-04-22] MEDS ORDERED: DO NOT ADM ANY ANTICOAGULANT DRUGS PRN (13:36)
--- NOTE | 2017-04-22 13:39 | RADRPT ---
EXAM DATE/TIME: 04/22/2017 12:50 [place] COMPARISON: ANKLE LEFT LIMITED (AP&LAT), April 18, 2017, 11:56. INDICATIONS : Open reduction internal fixation left distal tibia. MEDICAL HISTORY : Hypercholesterolemia. SURGICAL HISTORY : None. ENCOUNTER: Initial ACUITY: 1 day PAIN SCORE: Non-responsive. LOCATION: Left Tib/Fib CONCLUSION: Fluoroscopic images during placement of plate and screws along the distal tibia and fibula. Fractures are still seen with improved alignment. Ovidio Covington MD on April 22, 2017 at 13:37 Board Certified Radiologist. This report was verified electronically.
[2017-04-22] MEDS: KETOROLAC TROMETHAMINE 30 MG/ML (IVP) VIAL IVP SCH ×2 (14:00→22:42)
[2017-04-22] MEDS: LACTATED RINGER'S 1000 ML INJ 1,000 ML IV SCH ×2 (14:03→22:59)
[2017-04-22 15:05] VITALS: BP 124/81; PULSE 100; RESP 18; TEMP 99.9; O2SAT 92
[2017-04-22] MEDS: MAGNESIUM HYDROXIDE SUSP 30 ML CUP PO SCH (20:24)
[2017-04-22] MEDS: ceFAZolin 2 GM PREMIX 50 ML IV SCH (20:25)
[2017-04-22] MEDS ORDERED: SODIUM CHLORIDE 0.9% FLUSH 5 ML FLUSH IVF SCH (21:00)
[2017-04-22 21:10] VITALS: BP 108/55; PULSE 88; RESP 16; TEMP 98; O2SAT 94
[2017-04-22] MEDS: VANCOMYCIN INJ 1,000 MG in SODIUM CHLOR 0.9% 250 ML INJ 250 ML IV SCH (22:42)
[2017-04-23] VITALS: BP 112/62; PULSE 86; RESP 17; TEMP 97.1; O2SAT 94
[2017-04-23] MEDS: ACETAMINOPHEN/HYDROcodone 325 MG/10 MG TAB PO PRN ×4 (00:14→14:26)
[2017-04-23] MEDS: ceFAZolin 2 GM PREMIX 50 ML IV SCH ×2 (04:01→12:34)
[2017-04-23 04:30] VITALS: BP 136/74; PULSE 79; RESP 16; TEMP 97.2; O2SAT 93
[2017-04-23] MEDS: KETOROLAC TROMETHAMINE 30 MG/ML (IVP) VIAL IVP SCH (05:41)
--- NOTE | 2017-04-23 06:36 | PD.ORT.PN ---
Subjective Subjective Remarks POD 4 s/p ORIF with application of exfix left wrist POD 1 s/p removal of exfix with ORIF left distal tibia/fibula fxs doing well. pain controlled. no complaints. Objective Vitals Vital Signs Date Time Temp Pulse Resp B/P (MAP) Pulse Ox O2 Delivery O2 Flow Rate FiO2 04/23/17 04:57 16 04/23/17 04:30 97.2 79 16 136/74 (94) 93 04/23/17 01:30 Room Air 04/23/17 00:00 97.1 86 17 112/62 (79) 94 04/22/17 23:45 17 04/22/17 22:22 Nasal Cannula 2.00 04/22/17 21:10 98.0 88 16 108/55 (72) 94 04/22/17 15:05 99.9 100 18 124/81 (95) 92 04/22/17 14:35 99.2 101 16 95 Nasal Cannula 2 04/22/17 14:30 101 16 125/69 (87) 96 Nasal Cannula 2 04/22/17 14:15 101.5 97 16 132/77 (95) 95 Nasal Cannula 2 04/22/17 14:00 97 16 135/78 (97) 92 Nasal Cannula 2 04/22/17 13:45 93 14 131/70 (90) 93 Nasal Cannula 2 04/22/17 13:37 102.0 90 16 136/75 (95) 100 Simple Mask 04/22/17 08:00 98.6 86 18 129/78 (95) 96 I/O 04/22/17 04/22/17 04/22/17 04/23/17 04/23/17 04/23/17 07:00 15:00 23:00 07:00 15:00 23:00 Intake Total 0 ml 1500 ml 530 ml 250 ml Output Total 400 ml 35 ml 600 ml Balance -400 ml 1465 ml -70 ml 250 ml Intake Oral 0 ml 480 ml IV Total 1500 ml 50 ml 250 ml Output Urine Total 400 ml 600 ml Estimated Blood Loss 35 ml # Voids 4 # Bowel Movements 0 0 0 Result Diagram: 04/21/17 0658 Imaging Last 24 hours Impressions Pelvis X-Ray 04/17/17 1037 Signed Impressions: Service Date/Time: April 10:30 - CONCLUSION: 1. No acute fracture or dislocation. Hugo Clay MD Head CT 04/17/17 1037 Signed Impressions: Service Date/Time: April 10:58 - CONCLUSION: Normal examination. Morales Chapman MD Chest X-Ray 04/17/17 1037 Signed Impressions: Service Date/Time: April 10:30 - CONCLUSION: 1. Negative portable chest status post trauma. Hugo Clay MD Cervical Spine CT 04/17/17 1037 Signed Impressions: Service Date/Time: April 10:58 - CONCLUSION: 1. No acute fracture or prevertebral soft tissue swelling. 2. Mild bilateral foraminal narrowing at C4-5 and C3-4. 3. Mild cervical spondylosis at C4-5 and C3-4. Straightening of the normal cervical lordosis. Chip Rhoades MD Objective Remarks Left upper extremity: ex-fix intact. dressing c/d/i. nvi. sensation intact. cap refill Left lower extremity: +splint. intact. nvi Assessment & Plan Assessment and Plan 1) Left Distal Radius Fx s/p ORIF and application of exfix - POD 5 2) Left Distal Tibia Fx s/p removal of exfix with ORIF - POD 1 NWB LUE and LLE maintain splint of ankle at all times elevate ankle pin care BID of wrist ok to use platform walker CM for DC planning. possible CIR f/u with Yuri or [facility] in 2 weeks Jose Reynaga Apr 23, 2017 06:36
[2017-04-23 08:00] VITALS: BP 124/76; PULSE 74; RESP 18; TEMP 96.7; O2SAT 96
[2017-04-23 09:36] VITALS: O2SAT 97
[2017-04-23] MEDS ORDERED: HYDR-3583 PO (10:04)
[2017-04-23] MEDS ORDERED: ENOX40P SQ (10:04)
[2017-04-23] MEDS: VANCOMYCIN INJ 1,000 MG in SODIUM CHLOR 0.9% 250 ML INJ 250 ML IV SCH (10:22)
[2017-04-23] MEDS: SODIUM CHLORIDE 0.9% FLUSH 10 ML FLUSH IV FLUSH SCH (10:30)
[2017-04-23] MEDS: DOCUSATE SODIUM 50 MG/SENNA 8.6 MG TAB PO SCH (10:31)
--- NOTE | 2017-04-23 11:06 | HHI.DS ---
Discharge Summary Admission Date Apr 17, 2017 at 10:52 Discharge Date: Apr 23, 2017 Admitting Diagnosis trauma alert/10 foot fall/left tib-fib and left wrist fractures (1) Fall from ladder ICD Codes: W11.XXXA - Fall on and from ladder, initial encounter Status: Acute (2) Wrist fracture, closed ICD Codes: S62.109A - Fracture of unspecified carpal bone, unspecified wrist, initial encounter for closed fracture Status: Acute (3) Fracture of distal end of tibia with fibula ICD Codes: S82.309A - Unspecified fracture of lower end of unspecified tibia, initial encounter for closed fracture; S82.839A - Other fracture of upper and lower end of unspecified fibula, initial encounter for closed fracture Status: Acute Brief History S/P Trauma: Fall CBC/BMP: 04/21/17 0658 Significant Findings Laboratory Tests Test 04/21/17 06:58 Red Blood Count 4.37 MIL/MM3 (4.50-5.90) Neutrophils (%) (Auto) 79.1 % (16.0-70.0) Monocytes (%) (Auto) 8.7 % (0.0-8.0) Lymphocytes # (Auto) 0.7 TH/MM3 (1.0-4.8) Activated Partial Thromboplast Time 31.3 SEC (24.3-30.1) Imaging Last Impressions Ankle X-Ray 04/22/17 0000 Signed Impressions: Service Date/Time: Saturday, April 22, 2017 12:50 - CONCLUSION: Fluoroscopic images during placement of plate and screws along the distal tibia and fibula. Fractures are still seen with improved alignment. Ovidio Covington MD Chest X-Ray 04/21/17 0600 Signed Impressions: Service Date/Time: Friday, April 21, 2017 05:38 - CONCLUSION: Normal examination. Gaudencio Villalpando Jr., MD Wrist X-Ray 04/18/17 0000 Signed Impressions: Service Date/Time: Tuesday, April 18, 2017 11:56 - CONCLUSION: 1. Good alignment of the patient's distal radial fracture post plating. Dakota Chavez MD Pelvis X-Ray 04/17/17 1037 Signed Impressions: Service Date/Time: April 10:30 - CONCLUSION: 1. No acute fracture or dislocation. Hugo Clay MD Head CT 04/17/17 1037 Signed Impressions: Service Date/Time: April 10:58 - CONCLUSION: Normal examination. Morales Chapman MD Cervical Spine CT 04/17/17 1037 Signed Impressions: Service Date/Time: April 10:58 - CONCLUSION: 1. No acute fracture or prevertebral soft tissue swelling. 2. Mild bilateral foraminal narrowing at C4-5 and C3-4. 3. Mild cervical spondylosis at C4-5 and C3-4. Straightening of the normal cervical lordosis. Chip Rhoades MD Chest CT 04/17/17 0000 Signed Impressions: Service Date/Time: April 10:58 - CONCLUSION: 1. No evidence of intrathoracic trauma. 2. Minimal posterior atelectatic changes bilaterally. 3. Tiny bulla within the right lower lobe. Chip Rhoades MD Abdomen/Pelvis CT 04/17/17 0000 Signed Impressions: Service Date/Time: April 10:58 - CONCLUSION: 1. No evidence of intra-abdominal trauma. 2. Hepatomegaly. 3. Left inguinal hernia containing only fat. Chip Rhoades MD PE at Discharge GENERAL: 51 year old well-nourished male lying in bed. SKIN: Warm and dry. HEAD:Normocephalic. ENT: No nasal bleeding or discharge. Mucous membranes pink and moist. NECK: Trachea midline. No JVD. CARDIOVASCULAR: Regular rate and rhythm. RESPIRATORY: No accessory muscle use. Clear to auscultation. Breath sounds equal bilaterally. GASTROINTESTINAL: Abdomen soft, non-tender, nondistended. MUSCULOSKELETAL: Extremities without cyanosis, +2 LUE edema. LLE soft splint in place. LUE ex-fix and sling in place. MAEW, + sensation and pulses x4. NEUROLOGICAL: Awake and alert. Normal speech. 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 No LOC. GCS 15. INJURIES: LEFT distal radius/ulna fracture LEFT tib-fib fracture 04/18: Ex-fix LEFT wrist; ORIF LEFT radius. ORIF LEFT distal tib/fib fx. Ex-fix LEFT ankle. Diet: Regular, tolerating Pulmonary: IS Pain: [place]. Morphine IV. Activity: OOB. PT and OT ordered. (NWB LUE; NWB LLE) GI: Protonix Bowel: Brianna-colace BID. MOM. LBM: 04/21 DVT: SCDs. Lovenox 30 QD LEFT distal radius/ulna fracture, LEFT tib-fib fracture Orthopedics consulted 04/18: Ex-fix LEFT wrist; ORIF LEFT radius. ORIF LEFT distal tib/fib fx. Ex-fix LEFT ankle OOB- PT and OT ordered NWB LUE; NWB LLE Pain control S/P ORIF left distal tibia and fibula fxs with removal of ex-fix Follow-up with Ortho as outpatient Follow-up with PCP in 1 week Plan of care discussed with patient and at bedside. Patient is clear from trauma surgery standpoint to safely discharge to [place] rehabilitation. Pt Condition on Discharge: Stable Discharge Disposition: Rehab Inpatient Discharge Instructions DIET: Follow Instructions for: As Tolerated, No Restrictions Activities you can perform: See Additionl Instruction Activities to Avoid: Concussion Sports, Weight Bearing, Strenuous Activity Other Activity Instructions: Nonweightbearing left upper extremity- maintain sling, nonweightbearing left lower extremity Niyah Brooks Apr 23, 2017 11:06
[2017-04-23 12:00] VITALS: BP 136/81; PULSE 82; RESP 18; TEMP 97.7; O2SAT 97
[2017-04-23] MEDS ORDERED: ENOXAPARIN SODIUM 40 MG/0.4 ML SYRINGE SQ SCH (12:30)
[2017-04-23] MEDS: PANTOPRAZOLE SOD 40 MG DELAYED RELEASE TAB PO SCH (12:40)
[2017-04-23] MEDS ORDERED: VANC1000P IV (13:57)
[2017-04-23] MEDS ORDERED: CEFA2SOL IV (13:57)
[2017-04-30] MEDS ORDERED: BENCH (14:04)
[2017-04-30] MEDS ORDERED: WALKER/ADULT/FO1 MIS (14:04)
[2017-04-30] MEDS ORDERED: WHEEMIS3 (14:04)
[2017-05-01] MEDS ORDERED: [UNRECOGNIZED DRUG - OTHER] (11:35)
[2017-05-05] MEDS ORDERED: HYDR-3516 PO (08:50)
[2017-05-05] MEDS ORDERED: XARE10TA PO (08:50)
== END 2017-04-23 15:35 | DRG 493 ==
LOC: NEPI 10:36 → EDBD 10:52 → NEDH 10:52 → N06B 14:30
PROVIDERS: ADMIT Surgery; ATTEND Surgery
PROC: 0RH Upper Joints, Insertion (ICD-10-PCS; 2017-04-18)
PROC: 0SSG35Z Reposition Left Ankle Joint with External Fixation Device, Percutaneous Approach (ICD-10-PCS; 2017-04-18)
PROC: 0QSH35Z Reposition Left Tibia with External Fixation Device, Percutaneous Approach (ICD-10-PCS; principal; 2017-04-18 10:27)
PROC: 0PSJ04Z Reposition Left Radius with Internal Fixation Device, Open Approach (ICD-10-PCS; 2017-04-18 10:27)
PROC: 0QPHX5Z Removal of External Fixation Device from Left Tibia, External Approach (ICD-10-PCS; 2017-04-22)
PROC: 0QSH04Z Reposition Left Tibia with Internal Fixation Device, Open Approach (ICD-10-PCS; 2017-04-22)
PROC: 0QSK04Z Reposition Left Fibula with Internal Fixation Device, Open Approach (ICD-10-PCS; 2017-04-22)
DX: S82.302A Unspecified fracture of lower end of left tibia, initial encounter for closed fracture (principal); S52.572A Other intraarticular fracture of lower end of left radius, initial encounter for closed fracture; S82.832A Other fracture of upper and lower end of left fibula, initial encounter for closed fracture; W11.XXXA Fall on and from ladder, initial encounter; Y99.0 Civilian activity done for income or pay; M54.9 Dorsalgia, unspecified
CPT/HCPCS: 70450; 71010; 71260; 72125; 72170; 73100; 73600; 74177; 76000; 80048; 82435; 82565; 82947; 84132; 84295; 84520; 85025; 85610; 85730; 86850; 86900; 86901; 93005; 94150; 96372; 96374; 96375; 99291; C1713; G0390; J0131; J0690; J1100; J1170; J1580; J1650; J1885; J2270; J2405; J2550; J2710; J3010; J3370; J7030; J7050; J7120; Q9967